=== PATIENT | female | born 1945 | race Caucasian/White ===

== ENCOUNTER 2019-05-07 22:56 | Emergency (ER) | payer MEDICARE ==
[~2019-05-07] VITALS: Ht 152.4 cm; Wt 44.5 kg
[2019-05-07 23:22] VITALS: Ht 152.4 cm; Wt 44.5 kg
[2019-05-07] MEDS ORDERED: UNK BP MED (23:24)
[2019-05-07] MEDS ORDERED: PROTONIX40 MG PO (23:24)
[2019-05-07] MEDS ORDERED: THEOCHRON300 MG PO (23:24)
[2019-05-07 23:54] LABS: HEMATOCRIT 39.8 % (36.0-48.0); HEMOGLOBIN 13.5 g/dL (12-16); LYMPHOCYTES 6.9 % (15-50); MCH 28.2 pg (26.0-34.0); MCHC 33.9 g/dL (31.0-37.0); MCV 83.1 fL (80.0-100.0); MEAN PLATELET VOLUME 8.9 fL (7.4-10.4); NEUTROPHILS 85.5 % (40-80); PLATELET COUNT 249 10x3/uL (130-400); RBC 4.79 10x6/uL (4.00-5.40); RDW 14.5 % (11.5-14.5); WBC 11.6 10x3/uL (4.8-10.8)
[2019-05-08] MEDS ORDERED: MEDROL DOSE PACK4 MG PO (00:14)
[2019-05-08] MEDS ORDERED: COMBIVENT RESPIM4 GM INH (00:14)
[2019-05-08] MEDS ORDERED: AZITHROMYCIN500 MG PO (00:14)
[2019-05-08] MEDS ORDERED: ROBITUSSIN DM 110 ML PO (00:14)
[2019-05-08 00:18] LABS: ALBUMIN 3.2 g/dL (3.4-5.0); ALKALINE PHOSPHATASE 133 U/L (46-116); ALT (SGPT) 15 U/L (10-68); BILIRUBIN - TOTAL 0.18 mg/dL (0.2-1.3); CALC OSMOLALITY 288 mosm/kg (275-300); CALCIUM 8.8 mg/dL (8.5-10.1); CARBON DIOXIDE 24.1 mmol/L (21.0-32.0); CHLORIDE - SERUM 107 mmol/L (98-107); CREATININE - SERUM 0.8 mg/dL (0.6-1.3); GLUCOSE 96 mg/dL (74-106); POTASSIUM - SERUM 4.2 mmol/L (3.5-5.1); PRO BNP 146 pg/mL (0-125); PROTEIN - SERUM 6.8 g/dL (6.4-8.2); SODIUM 143 mmol/L (136-145); TROPONIN-I < 0.017 ng/mL (0.000-0.060); UREA NITROGEN 25 mg/dL (7-18); eGFR NON AFRICAN AMERICAN 74 mL/min (90-120)
[2019-05-08 01:17] VITALS: BP 131/68
== END 2019-05-08 01:18 | disposition home or self-care (01) ==
LOC: D.ER 22:56
PROVIDERS: Family Medicine
DX: J44.1 Chronic obstructive pulmonary disease with (acute) exacerbation (principal)

== ENCOUNTER 2019-05-15 21:42 | Emergency (ER) | payer MEDICARE ==
[~2019-05-15] VITALS: Ht 152.4 cm; Wt 43.6 kg
[~2019-05-15 21:42] MED LIST: AZITHROMYCIN500 MG PO; COMBIVENT RESPIM4 GM INH; MEDROL DOSE PACK4 MG PO; PROTONIX40 MG PO; ROBITUSSIN DM 110 ML PO; THEOCHRON300 MG PO; UNK BP MED
[2019-05-15 22:03] VITALS: Ht 152.4 cm; Wt 43.6 kg
[2019-05-15] MEDS ORDERED: IPRATROPIUM BRO15 M1 NASAL (23:44)
[2019-05-15] MEDS ORDERED: ALBUTEROL2.5 MG/3 M INH (23:44)
[2019-05-15] MEDS ORDERED: AUGMENTIN 875-11 TAB PO (23:44)
[2019-05-15 23:50] LABS: HEMATOCRIT 41.5 % (36.0-48.0); LYMPHOCYTES 16.9 % (15-50); MCHC 33.7 g/dL (31.0-37.0); MEAN PLATELET VOLUME 8.8 fL (7.4-10.4); NEUTROPHILS 75.9 % (40-80); PLATELET COUNT 272 10x3/uL (130-400); RDW 15.1 % (11.5-14.5); WBC 8.3 10x3/uL (4.8-10.8)
[2019-05-15 23:55] LABS: CALCIUM 8.3 mg/dL (8.5-10.1); CREATININE - SERUM 0.9 mg/dL (0.6-1.3)
[2019-05-16 00:09] LABS: ALBUMIN 3.1 g/dL (3.4-5.0); BILIRUBIN - TOTAL 0.24 mg/dL (0.2-1.3); PROTEIN - SERUM 6.4 g/dL (6.4-8.2)
[2019-05-16 00:33] LABS: APPEARANCE CLEAR (CLEAR); BILIRUBIN NEGATIVE (NEGATIVE); COLOR YELLOW (YELLOW); GLUCOSE NEGATIVE (NEGATIVE); KETONE NEGATIVE (NEGATIVE); NITRITE NEGATIVE (NEGATIVE); PROTEIN NEGATIVE (NEGATIVE); UROBILINOGEN NORMAL (NORMAL)
[2019-05-16 00:34] LABS: BACTERIA FEW /hpf (NEGATIVE); EPITHELIAL CELLS 0-5 /hpf (0-5); RED CELLS - URINE 0-5 /hpf (0-5); WHITE CELLS - URINE 0-5 /hpf (NEGATIVE)
[2019-05-16 02:11] VITALS: BP 145/78
== END 2019-05-16 02:11 | disposition home or self-care (01) ==
LOC: D.ER 21:42
PROVIDERS: Family Medicine
DX: J01.90 Acute sinusitis, unspecified (principal); J44.9 Chronic obstructive pulmonary disease, unspecified; Z91.14 Patient's other noncompliance with medication regimen; Z72.0 Tobacco use; I10 Essential (primary) hypertension

== ENCOUNTER 2019-08-27 20:51 | Emergency (ER) | payer OTHER, MEDICAID ==
[~2019-08-27] VITALS: Ht 152.4 cm; Wt 45.5 kg
[~2019-08-27 20:51] MED LIST changes: +ALBUTEROL2.5 MG/3 M INH; +AUGMENTIN 875-11 TAB PO; +IPRATROPIUM BRO15 M1 NASAL
[2019-08-27 21:07] VITALS: Ht 152.4 cm; Wt 45.5 kg
[2019-08-27 21:28] LABS: NITRITE POSITIVE (NEGATIVE)
[2019-08-27 21:29] LABS: BACTERIA MANY /hpf (NEGATIVE); BILIRUBIN NEGATIVE (NEGATIVE); EPITHELIAL CELLS OCC /hpf (0-5); GLUCOSE NEGATIVE (NEGATIVE); KETONE NEGATIVE (NEGATIVE); UROBILINOGEN NORMAL (NORMAL); WHITE CELLS - URINE >50 /hpf (NEGATIVE)
[2019-08-27 21:32] LABS: HEMATOCRIT 38.2 % (36.0-48.0); LYMPHOCYTES 15.7 % (15-50); MCH 28.2 pg (26.0-34.0); MCV 82.9 fL (80.0-100.0); MEAN PLATELET VOLUME 8.9 fL (7.4-10.4); NEUTROPHILS 79.5 % (40-80); PLATELET COUNT 326 10x3/uL (130-400); RBC 4.61 10x6/uL (4.00-5.40); RDW 13.6 % (11.5-14.5); WBC 10.6 10x3/uL (4.8-10.8)
[2019-08-27 21:35] LABS: ANION GAP 13.3 mmol/L (8-16); CALCIUM 9.2 mg/dL (8.5-10.1); CREATININE - SERUM 0.8 mg/dL (0.6-1.3); POTASSIUM - SERUM 3.3 mmol/L (3.5-5.1)
[2019-08-27 21:41] LABS: BILIRUBIN - TOTAL 0.52 mg/dL (0.2-1.3); PROTEIN - SERUM 6.6 g/dL (6.4-8.2)
[2019-08-27] MEDS ORDERED: MACROBID100 MG PO (22:02)
[2019-08-27] MEDS ORDERED: KEFLEX500 MG PO (22:02)
[2019-08-27 22:23] VITALS: BP 147/67
== END 2019-08-27 22:15 | disposition home or self-care (01) ==
LOC: D.ER 20:51
PROVIDERS: Emergency Medicine
DX: R30.0 Dysuria (principal); N39.0 Urinary tract infection, site not specified; J44.9 Chronic obstructive pulmonary disease, unspecified; R39.15 Urgency of urination; Z72.0 Tobacco use

== ENCOUNTER 2019-12-24 23:22 | Emergency (ER) | payer OTHER, MEDICAID ==
[~2019-12-24] VITALS: Ht 152.4 cm; Wt 40.9 kg
[~2019-12-24 23:22] MED LIST changes: +KEFLEX500 MG PO; +MACROBID100 MG PO
[2019-12-24 23:26] VITALS: Ht 152.4 cm; Wt 40.9 kg
[2019-12-24] MEDS ORDERED: B/P MED (23:29)
[2019-12-24] MEDS ORDERED: THEO-24300 MG (23:29)
[2019-12-24] MEDS ORDERED: TRAZODONE HCL150 MG PO (23:30)
[2019-12-24] MEDS ORDERED: AZITHROMYCIN500 MG PO (23:38)
[2019-12-25 00:08] LABS: BASOPHILS 0.2 % (0-2); EOSINOPHILS 1.7 % (0-7); HEMATOCRIT 40.9 % (36.0-48.0); HEMOGLOBIN 13.8 g/dL (12-16); IMMATURE GRANULOCYTES 0.2 % (0-5); LYMPHOCYTES 22.3 % (15-50); MCH 27.5 pg (26.0-34.0); MCHC 33.7 g/dL (31.0-37.0); MCV 81.5 fL (80.0-100.0); MEAN PLATELET VOLUME 8.8 fL (7.4-10.4); MONOCYTES 6.8 % (2-11); NEUTROPHILS 68.8 % (40-80); RBC 5.02 10x6/uL (4.00-5.40); RDW 15.5 % (11.5-14.5); WBC 6.1 10x3/uL (4.8-10.8)
[2019-12-25 00:09] LABS: PLATELET COUNT 215 10x3/uL (130-400)
[2019-12-25 00:18] LABS: CALC OSMOLALITY 284 mosm/kg (275-300); CALCIUM 9.3 mg/dL (8.5-10.1); CARBON DIOXIDE 26.4 mmol/L (21.0-32.0); CHLORIDE - SERUM 104 mmol/L (98-107); CREATININE - SERUM 0.8 mg/dL (0.6-1.3); GLUCOSE 105 mg/dL (74-106); POTASSIUM - SERUM 3.6 mmol/L (3.5-5.1); SODIUM 142 mmol/L (136-145); UREA NITROGEN 19 mg/dL (7-18); eGFR NON AFRICAN AMERICAN 74 mL/min (90-120)
[2019-12-25 00:27] LABS: BILIRUBIN NEGATIVE (NEGATIVE); KETONE NEGATIVE (NEGATIVE); NITRITE NEGATIVE (NEGATIVE); UROBILINOGEN NORMAL (NORMAL)
[2019-12-25] MEDS ORDERED: STERAPRED DS 1210 MG PO (00:27)
[2019-12-25 00:30] LABS: ALBUMIN 3.5 g/dL (3.4-5.0); ALKALINE PHOSPHATASE 181 U/L (30-120); ALT (SGPT) 12 U/L (10-68); BILIRUBIN - TOTAL 0.26 mg/dL (0.2-1.3); C-REACTIVE PROTEIN 1.3 mg/dL (0.0-0.9); PRO BNP 119 pg/mL (0-125)
[2019-12-25 00:36] LABS: BACTERIA FEW /hpf (NONE SEEN); EPITHELIAL CELLS 0-5 /hpf (0-5); RED CELLS - URINE 0-5 /hpf (0-5); WHITE CELLS - URINE 0-5 /hpf (0-5)
[2019-12-25 00:38] LABS: TROPONIN-I < 0.017 ng/mL (0.000-0.060)
[2019-12-25 00:55] VITALS: BP 113/65
== END 2019-12-25 00:55 | disposition home or self-care (01) ==
LOC: D.ER 23:22
PROVIDERS: Family Medicine
DX: J20.9 Acute bronchitis, unspecified (principal); J44.9 Chronic obstructive pulmonary disease, unspecified; R05 Cough; Z72.0 Tobacco use; R51 Headache; R50.9 Fever, unspecified

== ENCOUNTER 2020-01-03 22:42 | Emergency (ER) | payer OTHER, MEDICAID ==
[~2020-01-03] VITALS: Ht 152.4 cm; Wt 40.9 kg
[~2020-01-03 22:42] MED LIST changes: +B/P MED; +STERAPRED DS 1210 MG PO; +THEO-24300 MG; +TRAZODONE HCL150 MG PO
[2020-01-03 22:49] VITALS: BP 164/97; Ht 152.4 cm; Wt 40.9 kg
[2020-01-03] MEDS ORDERED: VOLTAREN25 MG PO (23:25)
[2020-01-03] MEDS ORDERED: LIORESAL 10 MG10 MG PO (23:25)
== END 2020-01-04 01:42 | disposition home or self-care (01) ==
LOC: D.ER 22:42
DX: M54.5 Low back pain (principal); M62.830 Muscle spasm of back; J44.9 Chronic obstructive pulmonary disease, unspecified; Z72.0 Tobacco use

== ENCOUNTER 2020-01-07 12:12 | Inpatient (IN) | payer OTHER ==
[~2020-01-07] VITALS: Ht 152.4 cm; Wt 40.8 kg
[~2020-01-07 12:12] MED LIST changes: +LIORESAL 10 MG10 MG PO; +VOLTAREN25 MG PO
[2020-01-07 13:24] LABS: HEMOGLOBIN 15.2 g/dL (12-16); MCH 28.6 pg (26.0-34.0); MCHC 34.5 g/dL (31.0-37.0); MCV 82.9 fL (80.0-100.0); MEAN PLATELET VOLUME 8.8 fL (7.4-10.4); PLATELET COUNT 262 10x3/uL (130-400); RBC 5.31 10x6/uL (4.00-5.40); RDW 15.5 % (11.5-14.5); WBC 27.8 10x3/uL (4.8-10.8)
[2020-01-07 13:34] LABS: APTT 24.2 SECONDS (22.8-39.4); INR 0.96 (0.85-1.17); PROTIME 12.7 SECONDS (11.6-15.0)
[2020-01-07 13:39] LABS: ANION GAP 14.6 mmol/L (8-16); CALCIUM 9.1 mg/dL (8.5-10.1); CARBON DIOXIDE 26.3 mmol/L (21.0-32.0); CREATININE - SERUM 0.9 mg/dL (0.6-1.3); POTASSIUM - SERUM 4.9 mmol/L (3.5-5.1)
[2020-01-07 13:45] LABS: ALBUMIN 3.3 g/dL (3.4-5.0); BILIRUBIN - TOTAL 0.72 mg/dL (0.2-1.3); PROTEIN - SERUM 6.5 g/dL (6.4-8.2)
[2020-01-07 13:48] LABS: LYMPHOCYTES 5 % (15-50); NEUTROPHILS 94 % (40-80); PLATELET ESTIMATE NORMAL
--- NOTE | 2020-01-07 17:30 | NUR ---
ALERT AND ORIENTED WITH LIMITED ROM TO RUE AND GAURDED 01/26. LEAD PAINTER MORPHINE SET PER ORDERS WITH PAIN MANAGEMENT EFFECTIVE. PURWICK APPLIED DUE TO LIMITED MOBILITY. RADIAL PULSES NOTED. FALL PRECAUTIONS ESTABLISHED. ENCOURAGED THE USE OF CALL LIGHT FOR ASSSIT.
[2020-01-07 17:37] VITALS: BP 157/82; BMI 17.6
--- NOTE | 2020-01-07 19:30 | NUR ---
SITTING UP IN BED. VERY ANXIOUS AND VERBALLY DISRUPTIVE. RESTLESS WITH PAIN. HAS CRIMINAL INTELLIGENCE ANALYST MORPHINE. EXPLAINED USE AND SHE TOOK A DOSE. RATES PAIN IN RUE 10. HAS NONPROD LOOSE COUGH. STATES HER SON AND HIS GIRLFRIEND HAD AND IT ALSO AND STATES, "I HAVE BRONCHITIS." NS @ KVO INFUSING IN LT AC. PUREWICK CATH IN PLACE BUT NO URINE IN CANISTER. O2 @ 2LNC. CONFUSED. ORIENTED TO SELF, PLACE AND SITUATION. DANO ALARM ON . SR ELEVATED X2. CL IN REACH.
--- NOTE | 2020-01-07 21:10 | NUR ---
COVID SWAB SENT TO LAB.
[2020-01-07 21:16] VITALS: BP 145/66
--- NOTE | 2020-01-07 21:43 | NUR ---
SPOKE WITH BLOCK HAND. NO TELEMETRY AVAILABLE AT THIS TIME.
[2020-01-08 01:27] VITALS: BP 172/63
--- NOTE | 2020-01-08 01:27 | NUR ---
RESTING IN BED WITH EYES CLOSED. HAS SLEPT WELL TONIGHT. HAS BEEN NPO SINCE MIDNIGHT. NO ACUTE DISTRESS. CL IN REACH.
--- NOTE | 2020-01-08 03:16 | NUR ---
DIMITRIOS PERFORMED PER DENISSE KING.
[2020-01-08 05:10] LABS: BASOPHILS 0 % (0-2); EOSINOPHILS 0.2 % (0-7); HEMATOCRIT 39.4 % (36.0-48.0); HEMOGLOBIN 13.1 g/dL (12-16); IMMATURE GRANULOCYTES 0.4 % (0-5); LYMPHOCYTES 7.5 % (15-50); MCH 27.6 pg (26.0-34.0); MCHC 33.2 g/dL (31.0-37.0); MCV 82.9 fL (80.0-100.0); MEAN PLATELET VOLUME 8.9 fL (7.4-10.4); NEUTROPHILS 84.9 % (40-80); PLATELET COUNT 239 10x3/uL (130-400); RBC 4.75 10x6/uL (4.00-5.40)
[2020-01-08 05:33] LABS: WBC 14.1 10x3/uL (4.8-10.8)
[2020-01-08 05:44] VITALS: BP 117/63
[2020-01-08 05:44] LABS: ALBUMIN 2.7 g/dL (3.4-5.0); ANION GAP 13.4 mmol/L (8-16); BILIRUBIN - TOTAL 0.61 mg/dL (0.2-1.3); CALCIUM 8.6 mg/dL (8.5-10.1); CREATININE - SERUM 1.1 mg/dL (0.6-1.3); MAGNESIUM - SERUM 2.2 mg/dL (1.8-2.4); POTASSIUM - SERUM 4.4 mmol/L (3.5-5.1); PROTEIN - SERUM 5.8 g/dL (6.4-8.2)
[2020-01-08 07:46] VITALS: BP 121/57
[2020-01-08 12:03] VITALS: BP 120/57
[2020-01-08 14:26] VITALS: Ht 152.4 cm; Wt 40.8 kg
[2020-01-08 16:33] VITALS: BP 118/62
--- NOTE | 2020-01-08 18:45 | NUR ---
PATIENT IN BED WITH IV INTACT. NO COMPLAINTS OR SIGNS OF DISTRESS. VS HAVE BEEN STABLE SINCE CAME BACK FROM SURGERY. PATIENT RESTING WITH NO PROBLEMS. BSCDS ON AND WORKING. CALL LIGHT WITHINR EACH.
--- NOTE | 2020-01-08 19:33 | NUR ---
Resting in bed no s/s of distress. call light and water in reach. IV in place and paten. VAMP STITCHER in place. sling to right sholder. incentive sprometer at bedside. on watting list for telementry. no needs at this time.
[2020-01-08 20:00] VITALS: BP 90/50
[2020-01-09] VITALS: BP 95/41
[2020-01-09 04:00] VITALS: BP 85/43
[2020-01-09 06:29] LABS: BASOPHILS 0 % (0-2); EOSINOPHILS 0.1 % (0-7); HEMOGLOBIN 10.5 g/dL (12-16); IMMATURE GRANULOCYTES 0.3 % (0-5); LYMPHOCYTES 3.6 % (15-50); MCH 27.6 pg (26.0-34.0); MCHC 32.8 g/dL (31.0-37.0); MCV 84.2 fL (80.0-100.0); MEAN PLATELET VOLUME 9.1 fL (7.4-10.4); MONOCYTES 6.4 % (2-11); NEUTROPHILS 89.6 % (40-80); PLATELET COUNT 207 10x3/uL (130-400); RDW 16.1 % (11.5-14.5); WBC 15.7 10x3/uL (4.8-10.8)
[2020-01-09 06:54] LABS: ALBUMIN 2.2 g/dL (3.4-5.0); ANION GAP 9.4 mmol/L (8-16); BILIRUBIN - TOTAL 0.24 mg/dL (0.2-1.3); CALCIUM 7.8 mg/dL (8.5-10.1); CARBON DIOXIDE 29.3 mmol/L (21.0-32.0); CREATININE - SERUM 1.3 mg/dL (0.6-1.3); POTASSIUM - SERUM 4.7 mmol/L (3.5-5.1); PROTEIN - SERUM 4.5 g/dL (6.4-8.2)
[2020-01-09 07:33] LABS: BILIRUBIN NEGATIVE (NEGATIVE); KETONE SMALL mg/dL (NEGATIVE); NITRITE POSITIVE (NEGATIVE); UROBILINOGEN NORMAL mg/dL (< 2)
[2020-01-09 07:34] LABS: WHITE CELLS - URINE 0-5 HPF (0-4)
[2020-01-09 07:35] LABS: AMORPHOUS SEDIMENT <1+ /lpf (NONE SEEN); BACTERIA MODERATE HPF (NONE SEEN); EPITHELIAL CELLS 0-5 /hpf (0-5)
--- NOTE | 2020-01-09 07:50 | NUR ---
PATIENT IN BED WATCHING TV. AWAKE AND ALERT. DENIES ANY NEEDS AT THIS TIME. BED LOW POSITION, CALL LIGHT IN REACH. WILL CONTINUE TO MONITOR.
--- NOTE | 2020-01-09 08:50 | NUR ---
REHAB PRESCREENING Rehab referral received and chart reviewed. This patient has [facility] as her provider which requires prior authorization for rehab benefit. PT evaluation has been ordered, not completed as of yet. OT evaluation will need to be ordered. Rehab will begin preauth process when evaluations are in place. Thank you for this referral! Tiffanie Whitley, FISH INSPECTOR Rehab PD
[2020-01-09 08:56] VITALS: BP 88/48
[2020-01-09 12:20] VITALS: BP 108/56
[2020-01-09 18:08] VITALS: BP 123/55
--- NOTE | 2020-01-09 19:44 | NUR ---
ALERT AND ABLE TO VOICE NEEDS AND WANTS TO STAFF. ON O2 AT 2L VIA N/C IN PLACE LEFT FORARME WITH D5 1/2 AND MORPHINE HOSPITAL ADMINISTRATOR IN PLACE. CALL LIGHT AND WATER IN REACH SCD'S ON NO NEEDS AT THIS TIME.
[2020-01-09 20:00] VITALS: BP 113/50
[2020-01-10] VITALS: BP 132/60
[2020-01-10 04:00] VITALS: BP 167/69
[2020-01-10 06:49] LABS: BASOPHILS 0 % (0-2); EOSINOPHILS 0.4 % (0-7); HEMATOCRIT 33.7 % (36.0-48.0); HEMOGLOBIN 11.1 g/dL (12-16); IMMATURE GRANULOCYTES 0.3 % (0-5); LYMPHOCYTES 5.4 % (15-50); MCH 27.8 pg (26.0-34.0); MCHC 32.9 g/dL (31.0-37.0); MCV 84.5 fL (80.0-100.0); MEAN PLATELET VOLUME 9.4 fL (7.4-10.4); MONOCYTES 5.8 % (2-11); NEUTROPHILS 88.1 % (40-80); PLATELET COUNT 183 10x3/uL (130-400); RBC 3.99 10x6/uL (4.00-5.40); RDW 16.2 % (11.5-14.5); WBC 14.8 10x3/uL (4.8-10.8)
[2020-01-10 07:20] LABS: ANION GAP 10.9 mmol/L (8-16); BILIRUBIN - TOTAL 0.25 mg/dL (0.2-1.3); CALCIUM 8.5 mg/dL (8.5-10.1); CARBON DIOXIDE 27.3 mmol/L (21.0-32.0); MAGNESIUM - SERUM 1.7 mg/dL (1.8-2.4); POTASSIUM - SERUM 4.2 mmol/L (3.5-5.1); PROTEIN - SERUM 5.2 g/dL (6.4-8.2)
[2020-01-10 07:21] LABS: CREATININE - SERUM 0.8 mg/dL (0.6-1.3)
--- NOTE | 2020-01-10 07:44 | NUR ---
PATIENT IN BED ON PHONE. DENIES PAIN OR NEEDS AT THIS TIME. BED LOW POSITION, CALL LIGHT IN REACH. WILL CONTINUE TO MONITOR.
[2020-01-10 09:44] VITALS: BP 145/70
[2020-01-10 12:13] VITALS: BP 146/66
--- NOTE | 2020-01-10 15:43 | OP ---
PATIENT NAME: ANCA PERERA MEDICAL RECORD: [id number] :45 LOCATION:D.[facility] [id number] ADMISSION DATE:01/07/20 SURGEON: ERICH REAGAN MD DATE OF OPERATION: 01/07/2020 PREOPERATIVE DIAGNOSIS: Three-part proximal humeral fracture dislocation of the right shoulder. POSTOPERATIVE DIAGNOSIS: Three-part proximal humeral fracture dislocation of the right shoulder. PROCEDURE: Reverse total shoulder arthroplasty for fracture. SURGEON: Erich Reagan MD ANESTHESIA: DENNIS Lyn INTRAOPERATIVE COMPLICATIONS: None. SUMMARY OF PATHOLOGIC FINDINGS: The patient did indeed have a fracture dislocation with tuberosities split and the humeral head was inferior to the glenohumeral joint. IMPLANTS USED: Tornier to perform reverse total shoulder arthroplasty. Please see the chart for details of the size used. OPERATIVE SUMMARY IN DETAIL: After obtaining appropriate preoperative orthopedic surgery consent as well as anesthetic consultation, evaluation and clearance, the patient was brought to the operating room and placed on the operating table in a supine position. After general laryngeal mask airway was administered, the patient was placed in beach chair position. All pressure points were well padded. She was held firmly to the operating table using vacuum pack suction system. Right upper extremity and shoulder were then prepped and draped in routine sterile fashion. The arm was held in the Trimano arm holding device. At this point, the appropriate timeout was taken and agreed upon by all given the patient's unique identifiers. Deltopectoral incision was taken down past the cephalic vein, which was retracted laterally. Conjoined tendon was gently retracted medially. Fracture hematoma was noted. This was cleared with irrigation. Tuberosities were then controlled with the greater and lesser being split. The patient's biceps tendon was ruptured. Rotator cuff was also gently incised to reveal the fractured humeral head, which was removed and saved for bone grafting. At this point, all fragments were removed. The patient's calcar was broken off. It was found to be a single small piece that was removed as well. Attention was then turned to the glenoid. Bicipital and labral labrectomy was performed circumferentially. Center pin was placed followed by reaming for the metaglene. The metaglene with post was then tamped into place and then screwed in with 2 compression screws and 2 locking screws. A standard 36 mm glenosphere head was put into place with the tamp screw tamp screw method, which seated nicely onto the patient's glenoid surface. Attention was then turned to the proximal humerus. Serial and sequential trials were undertaken and it was felt that the size 7 humeral stem was the most appropriate and trials were undertaken. After the most appropriate combination of trials and polyethylene trial was determined, this was all taken out. Final component was cemented into place that being a 7 x 130 fracture stem OPERATIVE REPORT [id number] ANCA PERERA and I used a retention insert +6. This reduced nicely. At this point, bone graft portion of which had already been placed into the stem in keeping with the fracture stem from Daniella and the rest of the bone graft was packed around this. Tuberosities were then sutured around the entire system including the lesser and greater together as well as these being sutured through two premade drill holes in the lateral part of the humerus. This resulted in excellent placement of the tuberosities behind the implant. At this point, the wound was filled with a gram of vancomycin and gram of tobramycin after it had been copiously lavaged. It was then closed with #1 Vicryl, 2-0 Vicryl by YOSI Jorge, and DENNIS Lyn. Sterile dressings were applied. A sling was applied. The patient was awakened and taken to recovery room in stable condition. All final needle and sponge counts were correct. TRANSINT:[id number] Voice Confirmation ID: [id number] DOCUMENT ID: [id number] TEZ LOVE, ERICH WATERS at 1543 CC: [id number] DICTATION DATE: 01/09/20 1540 POT ANNEALER: 01/09/20 2322 [facility] [address] [id number]
--- NOTE | 2020-01-10 15:52 | MORECARE ---
CASE MANAGEMENT DISCHARGE SUMMARY PATIENT: ANCA PERERA UNIT: [id number] ADM DATE: 01/07/20 AGE: 74 : 45 SEX: F ROOM/BED: D.2228 AUTHOR: MICKI LEVINE PHYSICIAN: REFERRING PHYSICIAN: ALEX DING MD DATE OF SERVICE: 01/10/20 Discharge Plan Patient Name: ANCA PERERA [facility] [facility] 1945 Planned Disposition: Detention Facility Anticipated Discharge Date: Discharge Date: Expected LOS: Initial Reviewer: [email or web address] Initial Review Date: 01/07/2020 Generated: 01/10/20 4:52 pm DCPIA - Discharge Planning Initial Assessment Updated by [id number]: Radha Crawford on 01/10/20 3:49 pm * Is the patient Alert and Oriented? Yes * PCP [facility] * Pharmacy [facility] * Preadmission Environment Home with Family * Equipment Walker * Community resources currently utilized None * Additional services required to return to the preadmission environment? Yes * Has this patient been hospitalized within the prior 30 days at any hospital? No Patient Name: ANCA PERERA Page [id number] at 1552 All edits/amendments must be made on the electronic document DICTATION DATE: 01/10/20 1552 THERMAL MOLDER: RONALDO 01/10/20 1552 RPT#: [id number] DC DATE: STATUS: ADM IN [facility] [address] [place] [address] END OF REPORT
--- NOTE | 2020-01-10 16:00 | MORECARE ---
CASE MANAGEMENT DISCHARGE SUMMARY PATIENT: ANCA PERERA UNIT: [id number] ADM DATE: 01/07/20 AGE: 74 : 45 SEX: F ROOM/BED: D.2228 AUTHOR: JULIANNADOC PHYSICIAN: REFERRING PHYSICIAN: ALEX DING MD DATE OF SERVICE: 01/10/20 Discharge Plan Patient Name: ANCA PERERA Facility: [facility]:[place] : 1945 Planned Disposition: Shelter Facility Anticipated Discharge Date: Discharge Date: Expected LOS: Initial Reviewer: [email or web address] Initial Review Date: 01/07/2020 Generated: 01/10/20 5:00 pm Comments DCP- Discharge Planning Updated by [email or web address]: Radhaaudrey Crawford on 01/10/20 2:[address] Patient Name: ANCA PERERA Admission Status: ER Accout number: [id number] Admission Date: 01-07-2020 : 1945 Admission Diagnosis:PATHOLOGICAL FRACTURE, UNSP SITE, INIT ENCNTR FOR FRACT Attending: ALEX DING Current LOS: 3 Anticipated DC Date: Planned Disposition: Shelter Facility Primary Insurance: [employer] Discharge Planning Comments: CM met with patient at bedside after explaining CM role and obtaining verbal consent. CM discussed availability / needs of home health, REHAB and medical equipment. STATES SHE HAS A WALKER AT HOME. I SPOKE WITH HER DAUGHTER ANAHI ON THE PHONE YESTERDAY AND SHE WAS PLANNING TO COME BY TODAY FOR ME TO GIVE HER BROCHURES FROM DIFFERENT REHABS. I LEFT SEVERAL BROSHURES WITH THE PATIENT, SHE STATES SHE WILL LOOK THEM OVER AND MAKE A DECISION. I WILL REVISIT HER TOMORROW. [employer] Certified Network Associate: Radha Crawford DCPIA - Discharge Planning Initial Assessment Updated by [id number]: Radha Crawford on 01/10/20 3:49 pm * Is the patient Alert and Oriented? Yes * PCP [facility] * Pharmacy [facility] * Preadmission Environment Home with Family * Equipment Walker * Community resources currently utilized None * Additional services required to return to the preadmission environment? Yes * Has this patient been hospitalized within the prior 30 days at any hospital? No Last DP export: 01/10/20 2:52 p Patient Name: ANCA PERERA Page 92111 at 1600 All edits/amendments must be made on the electronic document DICTATION DATE: 01/10/201599 COUNTY SUPERVISOR: RONALDO 01/10/201599 RPT#: [id number] DC DATE: STATUS: ADM IN [facility] [address] [place] [address] END OF REPORT
[2020-01-10 16:17] VITALS: BP 179/83
[2020-01-10 20:00] VITALS: BP 170/83
[2020-01-11] VITALS: BP 157/87
--- NOTE | 2020-01-11 01:27 | NUR ---
PATIENT IS ALERT WIH SOME CONFUSION NOTED AT TIMES. IV TO LEFT FOREARM WITH D5 1/2 NS PER ORDERS, MORPHINE SENIOR CHEMICAL ENGINEER IN PLACE FOR PAIN CONTROLE. RIGHT SHOULDER WITH DRESSING CLEAN DRY AND INTACT. SLING IN PLACE. WATER AND CALL LIGHT IN REACH. NO NEEDS AT THIS TIME.
[2020-01-11 04:00] VITALS: BP 176/81
[2020-01-11 06:24] LABS: BASOPHILS 0 % (0-2); EOSINOPHILS 0.1 % (0-7); HEMATOCRIT 37.6 % (36.0-48.0); HEMOGLOBIN 12.8 g/dL (12-16); IMMATURE GRANULOCYTES 0.3 % (0-5); LYMPHOCYTES 2.7 % (15-50); MCH 27.6 pg (26.0-34.0); MEAN PLATELET VOLUME 9.4 fL (7.4-10.4); MONOCYTES 4.4 % (2-11); NEUTROPHILS 92.5 % (40-80); RBC 4.64 10x6/uL (4.00-5.40); RDW 15.6 % (11.5-14.5); WBC 18.1 10x3/uL (4.8-10.8)
[2020-01-11 06:42] LABS: ALBUMIN 1.8 g/dL (3.4-5.0); ANION GAP 8.9 mmol/L (8-16); BILIRUBIN - TOTAL 0.37 mg/dL (0.2-1.3); CALCIUM 8.7 mg/dL (8.5-10.1); CREATININE - SERUM 0.8 mg/dL (0.6-1.3); MAGNESIUM - SERUM 1.9 mg/dL (1.8-2.4); POTASSIUM - SERUM 3.9 mmol/L (3.5-5.1); PROTEIN - SERUM 5.5 g/dL (6.4-8.2)
[2020-01-11 06:54] LABS: PLATELET COUNT 232 10x3/uL (130-400)
[2020-01-11 08:33] VITALS: BP 170/85
--- NOTE | 2020-01-11 08:50 | NUR ---
ASSESSMENT PER FLOW SHEET. RIGHT ARM IN SLING.COMPLAINS OF NAUSEA THIS AM,MEDS PER MAR ORDERED.FALL PREVENTION IN PLACE WITH BED ALARM.
--- NOTE | 2020-01-11 09:00 | NUR ---
OT NOTE: (DOS 01/10/20) PT COMPLETED UB HYGIENE TASKS WITH LUE WITH SETUP. [phone] THANK YOU,KOKO CARLSON
--- NOTE | 2020-01-11 10:59 | NUR ---
UP TO CHAIR WITH PT
--- NOTE | 2020-01-11 12:17 | NUR ---
OT NOTE: PT DOING BETTER TODAY. REPORTED THAT SHE HAD BEEN VOMITTING EARLIER THIS AM. ASSISTED PT TO EOB WITH MIN ASSIST; R UE REMAINS IMMOBILIZED. SITTING BALANCE GOOD. ABLE TO PERFORM SIMPLE GROOMING TASKS WITH MIN ASSIST. ABLE TO TAKE SEVERAL STEPS TO CHAIR.. BECAME NAUSEATED AGAIN AND WAS PROVIDED WITH EMMASIS BAG. TRANSFERRED TO CHAIR WITH MIN ASSIST AND POSITIONED FOR COMFORT. ASHLEY EISENBERG, OTR/L [phone]
[2020-01-11 12:33] VITALS: BP 167/82
--- NOTE | 2020-01-11 15:08 | NUR ---
HAD LARGE STOOL ON BSC. PATIENT HAS BEEN UP TO CHAIR A SAT FOR A FEW HOURS. SHE IS BACK TO BED AND REMAINS WITHOUT DISTRESS.
--- NOTE | 2020-01-11 15:35 | NUR ---
OT NOTE: PT REQUIRED SET UP WITH UB HYGIENE TASKS AND GROOMING. PT REQUIRED MIN A WITH BED MOB TASKS. PT IS STILL NAUSEATED. [phone] THANK YOU,KOKO CARLSON
--- NOTE | 2020-01-11 16:17 | NUR ---
ANOTHER SMALL BM. COMPLAINS OF NAUSEA. MEDS ORDERED PER MAR
[2020-01-11 17:26] VITALS: BP 146/85
--- NOTE | 2020-01-11 17:58 | NUR ---
SPOKE WITH ALLIE FELIZ APRN, PT IS REFUSING Q4 RT TXS DUE TO FEELING NO NEED AT THIS TIME. AGREED TO CHANGE TO PRN. PT WILL CALL IF TX NEEDED.
[2020-01-11 20:00] VITALS: BP 176/82
--- NOTE | 2020-01-11 20:00 | NUR ---
PT SITTING UP IN BED WITHOUT DISTRESS, RIGHT ARM IN SLING. DENIES PAIN. STATES SHE IS NAUSEOUS. GAVE ZOFRAN ORDERED. DAUGHTER IN LAW CALLED, UPDATE GIVEN. PT DENIES OTHER NEEDS AT THIS TIME. CL IN REACH, WILL CTM
[2020-01-12] VITALS: BP 164/79
--- NOTE | 2020-01-12 02:31 | NUR ---
PT VOMITED 200ML. GAVE ZOFRAN ORDERED. PLACED PT ON AND OFF BEDPAN. PT HAS QUARTER SIZE BLANCHABLE RED SPOT ON BUTTOCKS, PLACED CREAM OVER SPOT. PROVIDED PT COLD RAG TO PLACE ON FACE REQUESTED. REPOSITIONED IN BED. DENIES OTHER NEEDS. WILL CTM
[2020-01-12 04:00] VITALS: BP 162/84
[2020-01-12 07:39] LABS: BASOPHILS 0.1 % (0-2); EOSINOPHILS 0.2 % (0-7); HEMATOCRIT 35.7 % (36.0-48.0); IMMATURE GRANULOCYTES 0.2 % (0-5); LYMPHOCYTES 3.9 % (15-50); MCH 27.4 pg (26.0-34.0); MCHC 33.6 g/dL (31.0-37.0); MCV 81.5 fL (80.0-100.0); MEAN PLATELET VOLUME 9.5 fL (7.4-10.4); MONOCYTES 4.6 % (2-11); PLATELET COUNT 248 10x3/uL (130-400); RBC 4.38 10x6/uL (4.00-5.40); RDW 15.3 % (11.5-14.5); WBC 15.2 10x3/uL (4.8-10.8)
--- NOTE | 2020-01-12 08:00 | NUR ---
STILL HAVING ALOT OF NAUSEA. UNABLE TO TAKE AM MEDS AND REFUSES ALL TRAYS AND DRINKS.
[2020-01-12 08:03] LABS: ANION GAP 7.1 mmol/L (8-16); BILIRUBIN - TOTAL 0.42 mg/dL (0.2-1.3); CALCIUM 8.6 mg/dL (8.5-10.1); CREATININE - SERUM 0.8 mg/dL (0.6-1.3); POTASSIUM - SERUM 3.1 mmol/L (3.5-5.1); PROTEIN - SERUM 5.1 g/dL (6.4-8.2)
[2020-01-12 08:34] VITALS: BP 180/90
--- NOTE | 2020-01-12 11:35 | NUR ---
OT NOTE: PT REMAINS VERY NAUSEATED. STATES THAT SHE IS UNABLE TO KEEP ANY FOOD DOWN BECAUSE SHE TROWS IT BACK UP. PT INCONT OF URINE; ASSISTED TO EOB WITH MOD ASSIST. SIT TO STAND WITH MIN ASSIST AND ABLE TO TAKE A FEW SIDE STEPS. PT WAS ABLE TO STAY STANDING LONG ENOUGH FOR LINENS TO BE CHANGED. MAX ASSIST FOR TOILET HYGIENE. ABLE TO WASH FACE WITH CLOTH AND USE OF L HAND. THERAPIST REMOVED SLING TO CLEAN UNDER R UE AND RE APPLIED FOR BETTER POSITIONING. APPLIED CLEAN GOWN..PT ABLE TO GET BACK IN BED WITH MIN ASSIST. PTS NAUSEA SEEMS TO BE HER BIGEST PROBLEM AT THIS TIME. SHE WAS ABLE TO SIT UP IN CHAIR FOR SHORT TIME YESTERDAY, BUT STATED THAT SHE JUST FELT TOO SICK TO STAY UP IN CHAIR TODAY. ASHLEY EISENBERG, OTR/L [phone]
[2020-01-12 12:55] VITALS: BP 198/86
[2020-01-12 17:22] VITALS: BP 178/72
--- NOTE | 2020-01-12 19:00 | NUR ---
BEDSIDE REPORT RECEIVED AND CARE OF PT ASSUMED. PT LYING IN SUPINE POSITION WITH EYES CLOSED. IV TO LEFT FA PATENT WITH D51/2 NS INFUSING AT 75 ML/HR. RIGHT ARM IN SLING. CHANGED OUT EMESIS BAG...APPROX 240 ML OF DARK LIQUID IN BAG.
--- NOTE | 2020-01-12 20:10 | NUR ---
TALKED TO DAUGHTER IN LAW ON THE PHONE...SHE STATED THAT PT TOLD HER PT DID NOT WORK WITH HER TODAY. EXPLAINED TO DAUGHTER THAT PT REFUSED TO AMBULATE WITH PT TODAY OR TO SIT UP IN CHAIR.
--- NOTE | 2020-01-12 20:10 | NUR ---
HS MEDICATIONS GIVEN TO INCLUDE BENADRYL 25 MG IVP TO HELP WITH NAUSEA.
[2020-01-12] MEDS ORDERED: DILTIAZEM 24HR180 M4 PO (20:49)
[2020-01-12 21:08] VITALS: BP 203/52
--- NOTE | 2020-01-12 21:44 | NUR ---
BLOOD PRESSURE ELEVATED...SBP 202 LAST CHECK. RECEIVED ORDER FROM SOCIAL SECURITY ASSESSOR FOR APPRESOLINE 10 MG FOR SBP > 170. GAVE FIRST DOSE NOW. WILL MONITOR FOR EFFECTIVENESS.
[2020-01-13 00:28] VITALS: BP 173/55
--- NOTE | 2020-01-13 05:26 | NUR ---
PT C/O NAUSEA OFF AND ON ALL NIGHT. EMESIS AMOUNT FOR SHIFT 200 ML, DARK GREEN IN COLOR. PT INCONTINENT OF URINE AND HAD LARGE INCONTINENT STOOL...250 MLS. ENCOURAGED PT TO AMBULATE WITH PT THIS AM TO AID IN GETTING BOWELS BACK TO NORMAL.
[2020-01-13 05:44] LABS: BASOPHILS 0 % (0-2); EOSINOPHILS 0.1 % (0-7); HEMATOCRIT 34.5 % (36.0-48.0); HEMOGLOBIN 11.9 g/dL (12-16); IMMATURE GRANULOCYTES 0.1 % (0-5); LYMPHOCYTES 4.9 % (15-50); MCH 27.8 pg (26.0-34.0); MCHC 34.5 g/dL (31.0-37.0); MCV 80.6 fL (80.0-100.0); MEAN PLATELET VOLUME 9.4 fL (7.4-10.4); MONOCYTES 5.1 % (2-11); NEUTROPHILS 89.8 % (40-80); PLATELET COUNT 265 10x3/uL (130-400); RBC 4.28 10x6/uL (4.00-5.40); RDW 15.3 % (11.5-14.5); WBC 13.5 10x3/uL (4.8-10.8)
[2020-01-13 05:57] VITALS: BP 177/78
[2020-01-13 06:18] LABS: ALKALINE PHOSPHATASE 111 U/L (30-120); BILIRUBIN - TOTAL 0.45 mg/dL (0.2-1.3); CALC OSMOLALITY 266 mosm/kg (275-300); CALCIUM 8.5 mg/dL (8.5-10.1); CARBON DIOXIDE 33.4 mmol/L (21.0-32.0); CHLORIDE - SERUM 94 mmol/L (98-107); CREATININE - SERUM 0.7 mg/dL (0.6-1.3); GLUCOSE 123 mg/dL (74-106); PROTEIN - SERUM 5.5 g/dL (6.4-8.2); SODIUM 131 mmol/L (136-145); UREA NITROGEN 21 mg/dL (7-18); eGFR NON AFRICAN AMERICAN 87 mL/min (90-120)
[2020-01-13 06:19] LABS: ALT (SGPT) 8 U/L (10-68); POTASSIUM - SERUM 2.7 mmol/L (3.5-5.1)
--- NOTE | 2020-01-13 08:16 | NUR ---
0700 BEDSIDE REPORT RECEIVED PT ASLEEP AWAKENS TO VOICE ASSESSMENT COMPLETE ZOFRAN GTT INFUSING K+ RIDER #2 INFUSING
[2020-01-13 09:27] VITALS: BP 190/70
[2020-01-13 12:00] VITALS: BP 180/74
--- NOTE | 2020-01-13 16:45 | NUR ---
1300 PLACED NGT 16 fr TO RIGHT NARE WITHOUT COMPLICATIONS. THIN BILE GREEN DRAINAGE NOTED ON LOW INTERMITTANT SUCTION. APRESLINE 10MG GIVEN IV FOR HTN
--- NOTE | 2020-01-13 17:30 | NUR ---
1700 UP TO RECLINER CHAIR WITH ASSIST X 1 USED PILLOW SUPPORT FOR COMFORT
--- NOTE | 2020-01-13 17:33 | NUR ---
1715 ASSIST UP TO BEDSIDE COMMODE VOIDED CONCENTRATED URINE AND SMALL SOFT STOOL NOTED RETURNED TO RECLINER CHAIR CALL LIGHT IN REACH ELEVATED LEGS
[2020-01-13 18:06] VITALS: BP 142/76
--- NOTE | 2020-01-13 19:15 | NUR ---
PATIENT ALERT AND ORIENTED WHEN ENTERING THE ROOM. NGT TO THE RIGHT LIRIANO, 16 MALAWIAN IN SIZE, CONNECTED TO LOW, INTERMITTENT SUCTION, PULLING DARK GREEN GASTRIC CONTENTS. ASSESSMENT PERFORMED. RIGHT ARM IN SLING PER ORDER. IC TO THE LEFT FOREARM, INFUSING IVF PER ORDER. CALL LIGHT CLOSE. BED ALARM ON. CPOC.
[2020-01-13 21:18] VITALS: BP 140/62
--- NOTE | 2020-01-13 21:20 | NUR ---
IV TO THE LEFT FOREARM NO LONGER FLUSHING. REMOVED AND RESITED TO THE UPPER LEFT FOREARM. 22 G, X 1 ATTEMPT. CPOC.
[2020-01-14 01:23] VITALS: BP 121/52
[2020-01-14 05:08] VITALS: BP 192/74
[2020-01-14 07:02] LABS: BASOPHILS 0 % (0-2); EOSINOPHILS 0.8 % (0-7); HEMATOCRIT 31.8 % (36.0-48.0); HEMOGLOBIN 10.5 g/dL (12-16); IMMATURE GRANULOCYTES 0.3 % (0-5); LYMPHOCYTES 9.6 % (15-50); MCH 26.9 pg (26.0-34.0); MCV 81.5 fL (80.0-100.0); MEAN PLATELET VOLUME 9.1 fL (7.4-10.4); MONOCYTES 5.1 % (2-11); NEUTROPHILS 84.2 % (40-80); PLATELET COUNT 239 10x3/uL (130-400); RDW 15.4 % (11.5-14.5)
[2020-01-14 07:03] LABS: WBC 9.1 10x3/uL (4.8-10.8)
[2020-01-14 07:21] LABS: ALBUMIN 1.8 g/dL (3.4-5.0); BILIRUBIN - TOTAL 0.5 mg/dL (0.2-1.3); CALCIUM 8.6 mg/dL (8.5-10.1); CARBON DIOXIDE 33.1 mmol/L (21.0-32.0); MAGNESIUM - SERUM 2.1 mg/dL (1.8-2.4); POTASSIUM - SERUM 3.1 mmol/L (3.5-5.1); PROTEIN - SERUM 5.1 g/dL (6.4-8.2)
[2020-01-14 07:33] LABS: CREATININE - SERUM 0.9 mg/dL (0.6-1.3)
[2020-01-14 08:22] VITALS: BP 128/63
[2020-01-14 12:07] VITALS: BP 122/63
[2020-01-14 17:48] VITALS: BP 127/66
--- NOTE | 2020-01-14 19:00 | NUR ---
PATIENT ALERT AND ORIENTED X 4. PATIENT DENIES PAIN UPON ASSESSMENT. NGT TO RIGHT LIRIANO, CLAMPED PER ORDER. IVF INFUSING PER EMAR. ASSESSMENT PERFORMED. DENIES FURTHER NEEDS AT THIS TIME. CALL LIGHT CLOSE. CPOC.
--- NOTE | 2020-01-14 20:30 | NUR ---
ASSISTED TO BEDSIDE COMMODE WITH ONE PERSON ASSIST. TOLERATED AMBULATION WELL. SAT UP IN CHAIR FOR SEVERAL MINUTES AFTER PER 2100 ORDER. RETURNED TO BED SAFELY. CALL LIGHT CLOSE. CPOC.
[2020-01-14 21:48] VITALS: BP 167/80
--- NOTE | 2020-01-14 23:20 | NUR ---
RESTING WITH NO SIGNS OR SYMPTOMS OF DISTRESS AT THIS TIME. CALL LIGHT CLOSE TO PATIENT. DANO ALARM REMAINS ON. CPOC.
--- NOTE | 2020-01-15 01:30 | NUR ---
PATIENT COMPLAINING OF "FEELING SO FULL ITS HARD TO BREATHE IN. I'M FEELING SO SICK TO MY STOMACH." SLIGHT DISTENSION NOTED IN ABDOMEN. SPOKE WITH CHARGE NURSE, BOTH AGREED TO UNCLAMP NGT. IMMEDIATELY RECEIVED 1000 CC DARK GREEN GASTRIC CONTENTS.
[2020-01-15 01:34] VITALS: BP 181/85
--- NOTE | 2020-01-15 04:30 | NUR ---
AFTER REPLACING CANISTER, PATIENT ONLY PUT OUT ADDITIONAL 200 FROM NGT LOW INTERMITTENT SUCTION. RECLAMPED NGT AT THIS TIME. PATIENT PASSING GAS. ENCOURAGED PATIENT TO AMBULATE MORE AND TO TRY TO SIT IN CHAIR AND BE MORE ACTIVE WITHIN LIMITS. EDUCATED PATIENT ON ACTIVITY AIDING IN DIGESTION. PATIENT RECEPTIVE TO TEACHING. FALL ALARMS REMAIN IN PLACE. CALL LIGHT CLOSE. CPOC.
--- NOTE | 2020-01-15 04:58 | NUR ---
TUBING REPLACED PER POLICY PROTOCAL. CPOC.
[2020-01-15 05:13] VITALS: BP 161/71
[2020-01-15 05:42] LABS: BASOPHILS 0 % (0-2); EOSINOPHILS 0.7 % (0-7); HEMATOCRIT 30.9 % (36.0-48.0); HEMOGLOBIN 10.2 g/dL (12-16); IMMATURE GRANULOCYTES 0.3 % (0-5); LYMPHOCYTES 10.4 % (15-50); MCH 27.4 pg (26.0-34.0); MCV 83.1 fL (80.0-100.0); MEAN PLATELET VOLUME 9.1 fL (7.4-10.4); MONOCYTES 3.2 % (2-11); NEUTROPHILS 85.4 % (40-80); PLATELET COUNT 231 10x3/uL (130-400); RBC 3.72 10x6/uL (4.00-5.40); RDW 15.6 % (11.5-14.5); WBC 10.2 10x3/uL (4.8-10.8)
[2020-01-15 06:27] LABS: ALBUMIN 1.9 g/dL (3.4-5.0); ANION GAP 11.1 mmol/L (8-16); BILIRUBIN - TOTAL 0.47 mg/dL (0.2-1.3); CALCIUM 8.3 mg/dL (8.5-10.1); CARBON DIOXIDE 31.4 mmol/L (21.0-32.0); CREATININE - SERUM 0.8 mg/dL (0.6-1.3); MAGNESIUM - SERUM 2.2 mg/dL (1.8-2.4); POTASSIUM - SERUM 3.5 mmol/L (3.5-5.1); PROTEIN - SERUM 4.7 g/dL (6.4-8.2)
--- NOTE | 2020-01-15 07:15 | NUR ---
RECEIVED BEDSIDE REPORT. PT SITTING UP IN BED, A & O X4. PIV IN LEFT FOREARM, PATENT AND INFUSING, NO REDNESS OR SWELLING. NGT RIGHT NARE, 16 FR, CLAMMPED. RUE IN SLING, WEAKNESS AND IMPAIRED ROM. PT ABLE TO AMBULATE WITH ONE PERSON ASSIST TO BSC. SCDS ON BED, PT TAKES THEM ON AND OFF. ISP AT BEDSIDE, PT VERBALIZES USE. EDUCATED PT ON CL AND NEEDS, VERBALIZED UNDERSTANDING. BED LOW, RAILS X2. CL IN REACH, WILL CONTINUE TO MONITOR.
[2020-01-15 07:59] VITALS: BP 134/67
--- NOTE | 2020-01-15 09:45 | NUR ---
ASSISTED PT TO BSC, PT URINATED. ASSISSTED BACK TO BED, PT TOLERATED WELL. BED LOW, CL IN REACH.
--- NOTE | 2020-01-15 11:15 | NUR ---
ASSISTED PT CHAIR, TURNED CHAIR ALARM ON. EDUCATED PT ABOUT SITTING IN CHAIR THROUGHOUT MEALS, AND WORKING WITH PT TODAY, INCREASING MOVEMENT, PT VERBALIZED UNDERSTANDING. CHAIR ALARM ON, CL IN REACH.
[2020-01-15 11:49] VITALS: BP 140/88
--- NOTE | 2020-01-15 14:02 | NUR ---
OT NOTE: PT CONT TO C/O NAUSEA AND STATES THAT SHE CAN HARDLY SWALLOW BECAUSE HER SALIVA IS SO THICK. ASSISTED PT WITH MIN ASSIST TO EOB; AMB AROUND ROOM WITH COMPUTER TECHNOLOGY INSTRUCTOR; PT STOOD AT SINK AND PERFORMED ORAL CARE WITH CGA. PT DID SPIT OUT COPIOUS AMOUNTS OF THICK COLORLESS PHLEGM. BACK TO BED WITH MIN ASSIST. REPOSITIONED FOR COMFORT. ASHLEY EISENBERG, OTR/L
--- NOTE | 2020-01-15 15:00 | NUR ---
OT NOTE; PT COMPLETED SUPINE TO SIT WITH MIN A. PT COMPLETED EOB SITTING WITH CGA. PT COMPLETED SIT TO STAND WITH MIN A. PT REQUIRED MOD A FOR LAUREL SOCKS. [phone] THANK YOU,KOKO CARLSON
--- NOTE | 2020-01-15 15:45 | NUR ---
ASSISTED PT BACK TO BED FROM CHAIR, PT TOLERATED WELL. ATTACHED NGT TO WALL SUCTION, OUTPUT 1400ML GREEN FLUID. ABD STILL APPEARS DISTENDED. WILL CONTINUE TO MONITOR.
--- NOTE | 2020-01-15 15:56 | MORECARE ---
CASE MANAGEMENT DISCHARGE SUMMARY PATIENT: ANCA PERERA UNIT: [id number] ADM DATE: 01/07/20 AGE: 74 : 45 SEX: F ROOM/BED: D.2228 AUTHOR: JULIANNADOC PHYSICIAN: REFERRING PHYSICIAN: ALEX DING MD DATE OF SERVICE: 01/15/20 Discharge Plan Patient Name: ANCA PERERA Facility: [facility]:[place] : 1945 Planned Disposition: Group Home Facility Anticipated Discharge Date: Discharge Date: Expected LOS: Initial Reviewer: [email or web address] Initial Review Date: 01/07/2020 Generated: 01/15/20 4:55 pm Comments DCP- Discharge Planning Updated by [id number]: Radha Yvette on 01/15/20 2:[address] Patient Name: ANCA PERERA Admission Status: ER Accout number: [id number] Admission Date: 01-07-2020 : 1945 Admission Diagnosis:PATHOLOGICAL FRACTURE, UNSP SITE, INIT ENCNTR FOR FRACT Attending: ALEX DING Current LOS: 8 Anticipated DC Date: Planned Disposition: Group Home Facility Primary Insurance: [employer]YSMCR Discharge Planning Comments: CM SPOKE WITH PATIENT TODAY AND SHE WOULD LIKE REHAB AT [facility]. ALFREDO SIGNED AND I WILL FAX INITIAL CLINICALS TO THEM. CM TO FOLLOW AND ASSIST NEEDED WITH DC PLANNING/NEEDS. Computer Support Technician: Radha Crawford DCP- Discharge Planning Updated by [id number]: Radha Yvette on 01/10/20 2:[address] Patient Name: ANCA PERERA Admission Status: ER Accout number: [id number] Admission Date: 01-07-2020 : 1945 Admission Diagnosis:PATHOLOGICAL FRACTURE, UNSP SITE, INIT ENCNTR FOR FRACT Attending: ALEX DING Current LOS: 3 Anticipated DC Date: Planned Disposition: Group Home Facility Primary Insurance: NOV[employer]YSMCR Discharge Planning Comments: CM met with patient at bedside after explaining CM role and obtaining verbal consent. CM discussed availability / needs of home health, REHAB and medical equipment. STATES SHE HAS A WALKER AT HOME. I SPOKE WITH HER DAUGHTER ANAHI ON THE PHONE YESTERDAY AND SHE WAS PLANNING TO COME BY TODAY FOR ME TO GIVE HER BROCHURES FROM DIFFERENT REHABS. I LEFT SEVERAL BROSHURES WITH THE PATIENT, SHE STATES SHE WILL LOOK THEM OVER AND MAKE A DECISION. I WILL REVISIT HER TOMORROW. Computer Support Technician: Radha Yvette DCPIA - Discharge Planning Initial Assessment Updated by [id number]: Radha Yvette on 01/10/20 3:49 pm * Is the patient Alert and Oriented? Yes * PCP [facility] * Pharmacy [facility] * Preadmission Environment Home with Family * Equipment Walker * Community resources currently utilized None * Additional services required to return to the preadmission environment? Yes * Has this patient been hospitalized within the prior 30 days at any hospital? No External Providers [facility] [place] Next Contact Date: Service Request Date: Service Type: Resolution: Reviewer: Comments: Coverage Notice Reviewer: [id number] Khloe Crawford Notice Issued Date-Time: 01/15/2020 15:50 Notice Type: Patient Choice Letter Notice Delivered To: Patient Relationship to Patient: Eyelet Riveter Name: Delivery Method: HAND - Hand Delivered Laura Days: Prior Verbal Notification: Recipient Understood Notice: Yes Recipient Signature: Yes Med Rec Note Co-signed by Attending: Coverage Notice Comment: [facility] Last DP export: 01/10/20 3:00 p Patient Name: ANCA PERERA Page 62590 at 1556 All edits/amendments must be made on the electronic document DICTATION DATE: 01/15/20 155 SUPERVISOR GATE SERVICES: RONALDO 01/15/20 1556 RPT#: [id number] MO DATE: STATUS: ADM IN [facility] [address] [place] [address] END OF REPORT
[2020-01-15 16:49] VITALS: BP 148/60
--- NOTE | 2020-01-15 18:15 | NUR ---
PT DAUGHTER AT BEDSIDE, INQUIRES ABOUT CONSULT WITH SURGEON. EDUCATED PT THAT DR GALLARDO WOULD BE MAKING ROUNDS THIS EVENING AND IF SHE DOES NOT SEE HIM I WOULD GIVE HIM HER NUMBER TO UPDATE HER ON PT.
[2020-01-15 20:00] VITALS: BP 147/70
--- NOTE | 2020-01-15 20:00 | NUR ---
PATIENT IN BED RESTING WITH NO NEEDS NO S/S OF DISTRESS. ON ROOM AIR IV TO LEFT FOREARM WITH NS AT 75. NG TUB IN PLACE TO RIGHT NAIRE DRESSING AND SLING IN PLACE TP RIGHT ARM. BEDSIDE COMODE AT BEDSIDE. CALL LIGHT AND WATER IN REACH AT BEDSIDE. CHECKED OFTEN FOR NEEDS AND SAFETY.
[2020-01-16 04:00] VITALS: BP 150/75
[2020-01-16 07:00] LABS: BASOPHILS 0.1 % (0-2); EOSINOPHILS 0.8 % (0-7); HEMATOCRIT 29.8 % (36.0-48.0); HEMOGLOBIN 9.8 g/dL (12-16); IMMATURE GRANULOCYTES 0.3 % (0-5); LYMPHOCYTES 10.9 % (15-50); MCH 27.1 pg (26.0-34.0); MCHC 32.9 g/dL (31.0-37.0); MCV 82.5 fL (80.0-100.0); MEAN PLATELET VOLUME 8.8 fL (7.4-10.4); MONOCYTES 4.1 % (2-11); NEUTROPHILS 83.8 % (40-80); PLATELET COUNT 231 10x3/uL (130-400); RBC 3.61 10x6/uL (4.00-5.40); RDW 15.6 % (11.5-14.5); WBC 9.7 10x3/uL (4.8-10.8)
[2020-01-16 07:02] LABS: ALBUMIN 1.9 g/dL (3.4-5.0); ALKALINE PHOSPHATASE 132 U/L (30-120); ALT (SGPT) 14 U/L (10-68); BILIRUBIN - TOTAL 0.53 mg/dL (0.2-1.3); CALC OSMOLALITY 272 mosm/kg (275-300); CALCIUM 8.3 mg/dL (8.5-10.1); CARBON DIOXIDE 28.6 mmol/L (21.0-32.0); CHLORIDE - SERUM 100 mmol/L (98-107); CREATININE - SERUM 0.7 mg/dL (0.6-1.3); GLUCOSE 98 mg/dL (74-106); POTASSIUM - SERUM 3.4 mmol/L (3.5-5.1); PROTEIN - SERUM 5.1 g/dL (6.4-8.2); SODIUM 135 mmol/L (136-145); UREA NITROGEN 20 mg/dL (7-18); eGFR NON AFRICAN AMERICAN 87 mL/min (90-120)
--- NOTE | 2020-01-16 07:15 | NUR ---
RECEIVED BEDSIDE REPORT. PT SITTING UP A&O X4, DENIES NEEDS. PIV IN LEFT FOREARM, PATENT AND INFUSING. NGT TO RIGHT NARE, CLAMPED. ABD DISTENDED. PT ABLE TO AMBULATE WITH MIN ASSIST TO BSC. EDUCATED PT ON CL AND NEEDS, VERBALIZED UNDERSTANDING. BED LOW RAILS X2. CL IN REACH.
--- NOTE | 2020-01-16 08:15 | NUR ---
EDUCATED PT ABOUT XR SMALL BOWEL SERIES TO BE COMPLETED TODAY, VERBALIZED UNDERSTANDING. BED LOW, CL IN REACH.
[2020-01-16 08:51] VITALS: BP 148/76
--- NOTE | 2020-01-16 10:17 | MORECARE ---
CASE MANAGEMENT DISCHARGE SUMMARY PATIENT: ANCA PERERA UNIT: [id number] ADM DATE: 01/07/20 AGE: 74 : 45 SEX: F ROOM/BED: D.2228 AUTHOR: JULIANNADOC PHYSICIAN: REFERRING PHYSICIAN: ALEX DING MD DATE OF SERVICE: 01/16/20 Discharge Plan Patient Name: ANCA PERERA Facility: [facility]:[place] : 1945 Planned Disposition: Intermediate Facility Anticipated Discharge Date: Discharge Date: Expected LOS: Initial Reviewer: [id number] Initial Review Date: 01/07/2020 Generated: 01/16/20 11:17 am Comments DCP- Discharge Planning Updated by [id number]: Radha Yvette on 01/15/20 2:[address] Patient Name: ANCA PERERA Admission Status: ER Accout number: [id number] Admission Date: 01-07-2020 : 1945 Admission Diagnosis:PATHOLOGICAL FRACTURE, UNSP SITE, INIT ENCNTR FOR FRACT Attending: ALEX DING Current LOS: 8 Anticipated DC Date: Planned Disposition: Intermediate Facility Primary Insurance: NOVASYSMCR Discharge Planning Comments: CM SPOKE WITH PATIENT TODAY AND SHE WOULD LIKE REHAB AT [facility]. ALFREDO SIGNED AND I WILL FAX INITIAL CLINICALS TO THEM. CM TO FOLLOW AND ASSIST NEEDED WITH DC PLANNING/NEEDS. Rework Operator: Radha Crawford DCP- Discharge Planning Updated by [id number]: Radha Yvette on 01/10/20 2:[address] Patient Name: ANCA PERERA Admission Status: ER Accout number: [id number] Admission Date: 01-07-2020 : 1945 Admission Diagnosis:PATHOLOGICAL FRACTURE, UNSP SITE, INIT ENCNTR FOR FRACT Attending: ALEX DING Current LOS: 3 Anticipated DC Date: Planned Disposition: Intermediate Facility Primary Insurance: NOVASYSMCR Discharge Planning Comments: CM met with patient at bedside after explaining CM role and obtaining verbal consent. CM discussed availability / needs of home health, REHAB and medical equipment. STATES SHE HAS A WALKER AT HOME. I SPOKE WITH HER DAUGHTER ANAHI ON THE PHONE YESTERDAY AND SHE WAS PLANNING TO COME BY TODAY FOR ME TO GIVE HER BROCHURES FROM DIFFERENT REHABS. I LEFT SEVERAL BROSHURES WITH THE PATIENT, SHE STATES SHE WILL LOOK THEM OVER AND MAKE A DECISION. I WILL REVISIT HER TOMORROW. Rework Operator: Radhaaudrey Crawford DCPIA - Discharge Planning Initial Assessment Updated by [id number]: Radha Crawford on 01/10/20 3:49 pm * Is the patient Alert and Oriented? Yes * PCP [facility] * Pharmacy [facility] * Preadmission Environment Home with Family * Equipment Walker * Community resources currently utilized None * Additional services required to return to the preadmission environment? Yes * Has this patient been hospitalized within the prior 30 days at any hospital? No Coverage Notice Reviewer: [id number] - Radha Crawford Notice Issued Date-Time: 01/15/2020 15:50 Notice Type: Patient Choice Letter Notice Delivered To: Patient Relationship to Patient: Vice President Payer Name: Delivery Method: HAND - Hand Delivered Laura Days: Prior Verbal Notification: Recipient Understood Notice: Yes Recipient Signature: Yes Med Rec Note Co-signed by Attending: Coverage Notice Comment: [facility] Last DP export: 01/15/20 2:56 p Patient Name: ANCA PERERA Page 22184 at 1017 All edits/amendments must be made on the electronic document DICTATION DATE: 01/16/20 1017 SUPPLY CHAIN COORDINATOR: RONALDO 01/16/20 1017 RPT#: [id number] DC DATE: STATUS: ADM IN [facility] [address] [place] [address] END OF REPORT
--- NOTE | 2020-01-16 11:00 | NUR ---
PT C/O PAIN 12/27, PROVIDED PAIN MEDS PER ORDER. PT ABD DISTENDED PT INQUIRES ABOUT NGT BEING SUCTIONED, EDUCATED PT THAT WE CANNOT SUCTION AT THIS TIME DUE TO THE DYE BEING USED IN THE SMALL BOWELL SERIES, VERBALIZED UNDERSTANDING. BED LOW, CL IN REACH.
--- NOTE | 2020-01-16 15:33 | NUR ---
Nutrition follow-up: Pt sitting in bed with NGT in place Clear liqiud diet with small amounts of po intake Abdomen distended Pt reports nausea Labs reviewed ProcalAmine PPN @ 75 ml/hr Wt: 89# RDN following.
--- NOTE | 2020-01-16 15:54 | NUR ---
OT NOTE: TRANSFERRED FROM BED TO BS COMMODE WITH MIN ASSIST; PT WITH ATTEMPT TO HAVE BM BUT VERY SMALL. REPORTING PAIN IN UPPER ABD AREA IN THE MIDDLE. PT APPEARS TO BE VERY MISERABLE. ASSIST REQUIRED FOR TOILET HYGIENE. SET UP FOR HAND WASHING. ASHLEY EISENBERG, OTR/L [phone]
--- NOTE | 2020-01-16 18:02 | NUR ---
OT NOTE: PT COMPLETED SUPINE TO SIT WITH MIN A. PT COMPLETED EOB SITTING WITH CGA. PT COMPLETED UB HYGIENE WITH SETUP. PT STATED HER STOMACH IS STILL UPSET. [phone] THANK YOU,KOKO CARLSON.
[2020-01-16 20:00] VITALS: BP 194/77
--- NOTE | 2020-01-17 00:49 | NUR ---
I have reviewed this patient and I concur with the Shift Assessment completed by the Licensed Practical Nurse today this shift.
[2020-01-17 04:00] VITALS: BP 141/75
[2020-01-17 06:08] LABS: BASOPHILS 0.1 % (0-2); EOSINOPHILS 1.6 % (0-7); HEMATOCRIT 32.3 % (36.0-48.0); HEMOGLOBIN 10.6 g/dL (12-16); IMMATURE GRANULOCYTES 0.4 % (0-5); LYMPHOCYTES 13.5 % (15-50); MCHC 32.8 g/dL (31.0-37.0); MCV 82.4 fL (80.0-100.0); MEAN PLATELET VOLUME 9.2 fL (7.4-10.4); MONOCYTES 4.3 % (2-11); NEUTROPHILS 80.1 % (40-80); RBC 3.92 10x6/uL (4.00-5.40); RDW 15.7 % (11.5-14.5)
[2020-01-17 06:25] LABS: PLATELET COUNT 286 10x3/uL (130-400)
[2020-01-17 06:50] LABS: ALBUMIN 2.1 g/dL (3.4-5.0); ALKALINE PHOSPHATASE 147 U/L (30-120); BILIRUBIN - TOTAL 0.47 mg/dL (0.2-1.3); CALC OSMOLALITY 273 mosm/kg (275-300); CARBON DIOXIDE 29.5 mmol/L (21.0-32.0); CHLORIDE - SERUM 98 mmol/L (98-107); CREATININE - SERUM 0.6 mg/dL (0.6-1.3); GLUCOSE 100 mg/dL (74-106); MAGNESIUM - SERUM 2.3 mg/dL (1.8-2.4); POTASSIUM - SERUM 3.6 mmol/L (3.5-5.1); PROTEIN - SERUM 5.6 g/dL (6.4-8.2); SODIUM 135 mmol/L (136-145); UREA NITROGEN 23 mg/dL (7-18); eGFR NON AFRICAN AMERICAN > 90 mL/min (90-120)
[2020-01-17 06:52] LABS: ALT (SGPT) 18 U/L (10-68)
[2020-01-17 07:58] VITALS: BP 175/72
[2020-01-17 11:38] VITALS: BP 152/78
--- NOTE | 2020-01-17 13:11 | NUR ---
OT NOTE: PT FEELING SOME BETTER TODAY. NURSING AND PT REPORT NUMEROUS BMS TODAY. PT REPORTS THAT STOMACH FEELS SOME BETTER. BED MOB WITH MIN ASSIST; AMB IN ROOM WITH ASSEMBLER STEAM AND GAS TURBINE/MIN ASSIST. PT WITH BM UPON AMB AND WAS ASSISTED TO BS COMMODE WITH MIN ASSIST. PERFORMED SINK BATH WITH MOD ASSIST. PT ABLE TO WASH FACE AND BRUSH HAIR WITH L HAND.. R UE REMAINS IN SLING. MOD ASSIST TO DOFF AND LAUREL SOCKS. MAX ASSIST WITH PERINEAL CARE. APPLIED MOISTURE BARRIER PTS BOTTOM WAS VERY RED. PT WAS ABLE TO STAND FOR EXT TIME WITH MIN ASSIST WHILE LINENS WERE CHANGED. ASHLEY EISENBERG, OTR/L [phone]
--- NOTE | 2020-01-17 13:43 | NUR ---
I have reviewed this patient and I concur with the Shift Assessment completed by the Licensed Practical Nurse today this shift.
--- NOTE | 2020-01-17 13:45 | NUR ---
I have reviewed this patient and I concur with the Shift Assessment completed by the Licensed Practical Nurse today this shift.
--- NOTE | 2020-01-17 14:14 | MORECARE ---
CASE MANAGEMENT DISCHARGE SUMMARY PATIENT: ANCA PERERA UNIT: [id number] ADM DATE: 01/07/20 AGE: 74 : 45 SEX: F ROOM/BED: D.2228 AUTHOR: JULIANNADOC PHYSICIAN: REFERRING PHYSICIAN: ALEX DING MD DATE OF SERVICE: 01/17/20 Discharge Plan Patient Name: ANCA PERERA Facility: [facility]:[place] : 1945 Planned Disposition: Assisted Facility Anticipated Discharge Date: Discharge Date: Expected LOS: Initial Reviewer: [id number] Initial Review Date: 01/07/2020 Generated: 01/17/20 3:13 pm Comments DCP- Discharge Planning Updated by [id number]: Radha Crawford on 01/17/20 1:[address] Patient Name: ANCA PERERA Admission Status: ER Accout number: [id number] Admission Date: 01-07-2020 : 1945 Admission Diagnosis:PATHOLOGICAL FRACTURE, UNSP SITE, INIT ENCNTR FOR FRACT Attending: ALEX DING Current LOS: 10 Anticipated DC Date: Planned Disposition: Assisted Facility Primary Insurance: NOVASYSMCR Discharge Planning Comments: CM FAXED UPDATES TO [facility], THEY ARE FOLLOWING PATIENT AND WILL SUBMIT INSURANCE AUTH WHEN WE ANTICIPATE DISCHARGE. THEY WILL NEED A CURRENT NEGATIVE COVID ALSO BEFORE SHE CAN BE ACCEPTED INTO SNF. NEEDS TO BE WITHIN 72 HOURS. Target Aircraft Technician: Radha Crawford DCP- Discharge Planning Updated by [id number]: Radha Crawford on 01/15/20 2:[address] Patient Name: ANCA PERERA Admission Status: ER Accout number: [id number] Admission Date: 01-07-2020 : 1945 Admission Diagnosis:PATHOLOGICAL FRACTURE, UNSP SITE, INIT ENCNTR FOR FRACT Attending: ALEX DING Current LOS: 8 Anticipated DC Date: Planned Disposition: Assisted Facility Primary Insurance: NOVASYSMCR Discharge Planning Comments: CM SPOKE WITH PATIENT TODAY AND SHE WOULD LIKE REHAB AT [facility]. ALFREDO SIGNED AND I WILL FAX INITIAL CLINICALS TO THEM. CM TO FOLLOW AND ASSIST NEEDED WITH DC PLANNING/NEEDS. Target Aircraft Technician: Radha Crawford DCP- Discharge Planning Updated by [id number]: Radha Crawford on 01/10/20 2:[address] Patient Name: ANCA PERERA Admission Status: ER Accout number: [id number] Admission Date: 01-07-2020 : 1945 Admission Diagnosis:PATHOLOGICAL FRACTURE, UNSP SITE, INIT ENCNTR FOR FRACT Attending: ALEX DING Current LOS: 3 Anticipated DC Date: Planned Disposition: Assisted Facility [facility] Discharge Planning Comments: CM met with patient at bedside after explaining CM role and obtaining verbal consent. CM discussed availability / needs of home health, REHAB and medical equipment. STATES SHE HAS A WALKER AT HOME. I SPOKE WITH HER DAUGHTER ANAHI ON THE PHONE YESTERDAY AND SHE WAS PLANNING TO COME BY TODAY FOR ME TO GIVE HER BROCHURES FROM DIFFERENT REHABS. I LEFT SEVERAL BROSHURES WITH THE PATIENT, SHE STATES SHE WILL LOOK THEM OVER AND MAKE A DECISION. I WILL REVISIT HER TOMORROW. Target Aircraft Technician: Radhaaudrey Crawford DCPIA - Discharge Planning Initial Assessment Updated by [id number]: Radha Crawford on 01/10/20 3:49 pm * Is the patient Alert and Oriented? Yes * PCP [facility] * Pharmacy [facility] * Preadmission Environment Home with Family * Equipment Walker * Community resources currently utilized None * Additional services required to return to the preadmission environment? Yes * Has this patient been hospitalized within the prior 30 days at any hospital? No Coverage Notice Reviewer: [id number] - Radha Crawford Notice Issued Date-Time: 01/15/2020 15:50 Notice Type: Patient Choice Letter Notice Delivered To: Patient Relationship to Patient: Media Production Manager Name: Delivery Method: HAND - Hand Delivered Laura Days: Prior Verbal Notification: Recipient Understood Notice: Yes Recipient Signature: Yes Med Rec Note Co-signed by Attending: Coverage Notice Comment: [facility] Last DP export: 01/16/20 9:17 a Patient Name: ANCA PERERA Page 65548 at 1414 All edits/amendments must be made on the electronic document DICTATION DATE: 01/17/20 1413 DROP WIRE ALINER: RONALDO 01/17/20 1413 RPT#: [id number] DC DATE: STATUS: ADM IN [facility] [address] [facility] [place] [address] END OF REPORT
--- NOTE | 2020-01-17 14:59 | NUR ---
PT CONTINUES TO HAVE LOOSE BMS. STATED SHE "FEELS OUT OF BREATH" PLACED PT ON 2L O2 AND PT STATED SHE FELT BETTER, PRN PAIN MEDICAINE GIVEN AND PT STATES THAT HELPED. NO OTHER NEEDS AT THIS TIME. CONTINUE WITH PLAN OF CARE
--- NOTE | 2020-01-17 15:06 | NUR ---
OT NOTE: PT COMPLETED BEDMOB TASKS WITH MIN A. PT COMPLETED EOB SITTING WITH CGA. PT COMPLETED STANDING BALANCE WITH CGA. PT REQUIRED TOTAL A WITH TOILET HYGIENE. THANK YOU,KOKO CARLSON
[2020-01-17 16:37] VITALS: BP 185/67
[2020-01-17 20:00] VITALS: BP 115/52
--- NOTE | 2020-01-17 22:55 | NUR ---
I have reviewed this patient and I concur with the Shift Assessment completed by the Licensed Practical Nurse today this shift.
[2020-01-18] VITALS: BP 165/69
[2020-01-18 04:00] VITALS: BP 171/78
[2020-01-18 06:45] LABS: ALBUMIN 1.9 g/dL (3.4-5.0); ALKALINE PHOSPHATASE 133 U/L (30-120); ALT (SGPT) 16 U/L (10-68); BILIRUBIN - TOTAL 0.41 mg/dL (0.2-1.3); CALC OSMOLALITY 271 mosm/kg (275-300); CALCIUM 8.1 mg/dL (8.5-10.1); CARBON DIOXIDE 24.8 mmol/L (21.0-32.0); CHLORIDE - SERUM 105 mmol/L (98-107); CREATININE - SERUM 0.5 mg/dL (0.6-1.3); GLUCOSE 88 mg/dL (74-106); MAGNESIUM - SERUM 1.8 mg/dL (1.8-2.4); POTASSIUM - SERUM 3.6 mmol/L (3.5-5.1); PROTEIN - SERUM 5.1 g/dL (6.4-8.2); SODIUM 136 mmol/L (136-145); eGFR NON AFRICAN AMERICAN > 90 mL/min (90-120)
[2020-01-18 06:47] LABS: UREA NITROGEN 16 mg/dL (7-18)
[2020-01-18 06:57] LABS: BASOPHILS 0 % (0-2); HEMOGLOBIN 9.1 g/dL (12-16); IMMATURE GRANULOCYTES 0.3 % (0-5); LYMPHOCYTES 11.5 % (15-50); MCH 27.2 pg (26.0-34.0); MCHC 32.5 g/dL (31.0-37.0); MCV 83.6 fL (80.0-100.0); MEAN PLATELET VOLUME 8.9 fL (7.4-10.4); NEUTROPHILS 82.2 % (40-80); PLATELET COUNT 248 10x3/uL (130-400); RBC 3.35 10x6/uL (4.00-5.40); RDW 15.7 % (11.5-14.5); WBC 7.6 10x3/uL (4.8-10.8)
--- NOTE | 2020-01-18 07:00 | NUR ---
PT IS RESTING IN BED WITH EYES OPEN. RESPIRATIONS ARE EVEN AND UNLABORED. PT IS AAO X 4. NG TUBE TO RIGHT NARE IS CLAMPED. SLING TO RIGHT SHOULDER IN PLACE. DRESSING TO RIGHT SHOULDER INPLACE AND IS CDI. PT DENIES PRESENCE OF PAIN/N/V/DYSPNEA AT THIS TIME. PT DENIES PRESENCE OF NUMBNESS/TINGLING TO BUE AND BLE. FALL PRECAUTIONS IN PLACE. BED IS IN THE LOWEST POSITION. CALL LIGHT AND BEDSIDE TABLE ARE WITHIN REACH. SIDE RAILS X 2. PT DENIES FURTHER NEEDS. WILL CONT TO MONITOR.
[2020-01-18 08:07] VITALS: BP 158/56
--- NOTE | 2020-01-18 10:16 | NUR ---
PATIENT HAS REFUSED TO TAKE BREATHING TREATMENT FOR SEVERAL DAYS. PATIENT STATES THAT IF SHE NEEDS ONE SHE WILL LET US KNOW. PATIENT WOULD LIKE THE ORDERED BREATHING TREATMENT PRN.
[2020-01-18 12:04] VITALS: BP 191/97
[2020-01-18 16:47] VITALS: BP 159/74
[2020-01-18 20:00] VITALS: BP 186/83
--- NOTE | 2020-01-18 22:15 | NUR ---
OT NOTE: PT COMPLETED SIT TO STAND WITH SBA/CGA. PT COMPLETED ADL MOB WITH RW REQUIRED CGA. PT REQUIRED SET UP FOR UB HYGIENE TASKS WHILE SITTING EOB. PT REQUESTED TO RETURN TO BED. PT REQUIRED TOTAL A FOR SLING POSITIONING TO SUPPORT RUE. PT EXHIBITED INCREASED AX TOLERANCE WITH FUNCTIONAL TASKS. PT HAD NO C/O PAIN OR NAUSEA. [phone] THANK YOU,KOKO CARLSON
[2020-01-19 04:00] VITALS: BP 179/92
[2020-01-19 05:40] LABS: BASOPHILS 0 % (0-2); EOSINOPHILS 2.1 % (0-7); HEMATOCRIT 29.9 % (36.0-48.0); HEMOGLOBIN 9.7 g/dL (12-16); IMMATURE GRANULOCYTES 0.4 % (0-5); LYMPHOCYTES 11.3 % (15-50); MCH 26.7 pg (26.0-34.0); MCHC 32.4 g/dL (31.0-37.0); MCV 82.4 fL (80.0-100.0); MEAN PLATELET VOLUME 8.9 fL (7.4-10.4); MONOCYTES 4.4 % (2-11); NEUTROPHILS 81.8 % (40-80); PLATELET COUNT 283 10x3/uL (130-400); RBC 3.63 10x6/uL (4.00-5.40); RDW 15.6 % (11.5-14.5); WBC 7.3 10x3/uL (4.8-10.8)
--- NOTE | 2020-01-19 05:47 | NUR ---
I have reviewed this patient and I concur with the Shift Assessment completed by the Licensed Practical Nurse today this shift.
[2020-01-19 06:19] LABS: ALBUMIN 2.1 g/dL (3.4-5.0); ALKALINE PHOSPHATASE 150 U/L (30-120); ALT (SGPT) 18 U/L (10-68); BILIRUBIN - TOTAL 0.54 mg/dL (0.2-1.3); CALC OSMOLALITY 275 mosm/kg (275-300); CALCIUM 8.5 mg/dL (8.5-10.1); CHLORIDE - SERUM 104 mmol/L (98-107); CREATININE - SERUM 0.5 mg/dL (0.6-1.3); GLUCOSE 104 mg/dL (74-106); MAGNESIUM - SERUM 1.8 mg/dL (1.8-2.4); POTASSIUM - SERUM 3.6 mmol/L (3.5-5.1); PROTEIN - SERUM 5.4 g/dL (6.4-8.2); SODIUM 138 mmol/L (136-145); UREA NITROGEN 12 mg/dL (7-18); eGFR NON AFRICAN AMERICAN > 90 mL/min (90-120)
--- NOTE | 2020-01-19 07:15 | NUR ---
REC'D IN BED AWAKE AND ALERT. RESP EVEN AND UNLABORED WITH NO DISTRESS NOTED. CAN EXPRESS NEEDS AND WANTS. NO C/O NOTED OR VOICED. NG TUBE NOTED TO RIGHT NARE CLAMPED AT THIS TIME. ASSESSMENT COMPLETED. C/L IN REACH AT BEDSIDE.
[2020-01-19 10:10] VITALS: BP 189/82
[2020-01-19 13:50] VITALS: BP 189/86
--- NOTE | 2020-01-19 16:11 | NUR ---
I have reviewed this patient and I concur with the Shift Assessment completed by the Licensed Practical Nurse today this shift.
--- NOTE | 2020-01-19 16:15 | MORECARE ---
CASE MANAGEMENT DISCHARGE SUMMARY PATIENT: ANCA PERERA UNIT: [id number] ADM DATE: 01/07/20 AGE: 74 : 45 SEX: F ROOM/BED: D.2228 AUTHOR: MICKI LEVINE PHYSICIAN: REFERRING PHYSICIAN: ALEX DING MD DATE OF SERVICE: 01/19/20 Discharge Plan Patient Name: ANCA PERERA Facility: [facility]:[place] : 1945 Planned Disposition: Alf Facility Anticipated Discharge Date: Discharge Date: Expected LOS: Initial Reviewer: [id number] Initial Review Date: 01/07/2020 Generated: 01/19/20 5:14 pm Comments DCP- Discharge Planning Updated by [id number]: Radha Crawford on 01/19/20 3:[address] Patient Name: ANCA PERERA Admission Status: ER Accout number: [id number] Admission Date: 01-07-2020 : 1945 Admission Diagnosis:PATHOLOGICAL FRACTURE, UNSP SITE, INIT ENCNTR FOR FRACT Attending: ALEX DING Current LOS: 12 Anticipated DC Date: Planned Disposition: Alf Facility Primary Insurance: NOVASYSMCR Discharge Planning Comments: CM SPOKE WITH [facility] ABOUT POTENTIAL DC WEDNESDAY. UPDATED CLINICALS FAXED TO THEM AND A CURRENT COVID ORDERED TODAY BECAUSE WILL NEED A NEGATIVE BACK BEFORE SHE CAN BE ACCEPTED INTO SNF. WE WILL BE WAITING INSURANCE AUTH WITH ANTICIPATION OF DC WEDNESDAY IF IMPROVED AND ACCEPTABLE WITH PHYSICIANS. CM TO FOLLOW AND ASSIST NEEDED. Rural Mail Carrier: Radha Crawford DCP- Discharge Planning Updated by [id number]: Radha Crawford on 01/17/20 1:[address] Patient Name: ANCA PERERA Admission Status: ER Accout number: [id number] Admission Date: 01-07-2020 : 1945 Admission Diagnosis:PATHOLOGICAL FRACTURE, UNSP SITE, INIT ENCNTR FOR FRACT Attending: ALEX DING Current LOS: 10 Anticipated DC Date: Planned Disposition: Alf Facility Primary Insurance: NOVASYSMCR Discharge Planning Comments: CM FAXED UPDATES TO [facility], THEY ARE FOLLOWING PATIENT AND WILL SUBMIT INSURANCE AUTH WHEN WE ANTICIPATE DISCHARGE. THEY WILL NEED A CURRENT NEGATIVE COVID ALSO BEFORE SHE CAN BE ACCEPTED INTO SNF. NEEDS TO BE WITHIN 72 HOURS. Rural Mail Carrier: Radha Crawford DCP- Discharge Planning Updated by [id number]: Radha Crawford on 01/15/20 2:[address] Patient Name: ANCA PERERA Admission Status: ER Accout number: [id number] Admission Date: 01-07-2020 : 1945 Admission Diagnosis:PATHOLOGICAL FRACTURE, UNSP SITE, INIT ENCNTR FOR FRACT Attending: ALEX DING Current LOS: 8 Anticipated DC Date: Planned Disposition: Alf Facility [facility] Discharge Planning Comments: CM SPOKE WITH PATIENT TODAY AND SHE WOULD LIKE REHAB AT [facility]. ALFREDO SIGNED AND I WILL FAX INITIAL CLINICALS TO THEM. CM TO FOLLOW AND ASSIST NEEDED WITH DC PLANNING/NEEDS. Rural Mail Carrier: Radha Yvette DCP- Discharge Planning Updated by [id number]: Radha Crawford on 01/10/20 2:[address] Patient Name: ANCA PERERA Admission Status: ER Accout number: [id number] Admission Date: 01-07-2020 : 1945 Admission Diagnosis:PATHOLOGICAL FRACTURE, UNSP SITE, INIT ENCNTR FOR FRACT Attending: ALEX DING Current LOS: 3 Anticipated DC Date: Planned Disposition: Alf Facility [facility] Discharge Planning Comments: CM met with patient at bedside after explaining CM role and obtaining verbal consent. CM discussed availability / needs of home health, REHAB and medical equipment. STATES SHE HAS A WALKER AT HOME. I SPOKE WITH HER DAUGHTER ANAHI ON THE PHONE YESTERDAY AND SHE WAS PLANNING TO COME BY TODAY FOR ME TO GIVE HER BROCHURES FROM DIFFERENT REHABS. I LEFT SEVERAL BROSHURES WITH THE PATIENT, SHE STATES SHE WILL LOOK THEM OVER AND MAKE A DECISION. I WILL REVISIT HER TOMORROW. Rural Mail Carrier: Radha Crawford DCPIA - Discharge Planning Initial Assessment Updated by [id number]: Radha Crawford on 01/10/20 3:49 pm * Is the patient Alert and Oriented? Yes * PCP [facility] * Pharmacy [facility] * Preadmission Environment Home with Family * Equipment Walker * Community resources currently utilized None * Additional services required to return to the preadmission environment? Yes * Has this patient been hospitalized within the prior 30 days at any hospital? No Coverage Notice Reviewer: [id number] Khloe Crawford Notice Issued Date-Time: 01/15/2020 15:50 Notice Type: Patient Choice Letter Notice Delivered To: Patient Relationship to Patient: Epic Beacon Analyst Name: Delivery Method: HAND - Hand Delivered Laura Days: Prior Verbal Notification: Recipient Understood Notice: Yes Recipient Signature: Yes Med Rec Note Co-signed by Attending: Coverage Notice Comment: [facility] Last DP export: 01/17/20 1:14 p Patient Name: ANCA PERERA Page 10938 at 1615 All edits/amendments must be made on the electronic document DICTATION DATE: 01/19/20 1615 TIMBER HEWER: RONALDO 01/19/20 1615 RPT#: [id number] DC DATE: STATUS: ADM IN [facility] [address] [place] [address] END OF REPORT
[2020-01-19 16:49] VITALS: BP 176/79
--- NOTE | 2020-01-19 17:05 | NUR ---
OT NOTE: PT COMPLETED SUPINE TO SIT WITH MIN A. PT COMPLETED SIT TO STAND WITH MIN A. PT COMPLETED BED TO C TSF WITH MIN A. PT REQUIRED SBA WITH TOILETING TASKS. [phone] THANK YOU, KOKO CARLSON
[2020-01-19 20:00] VITALS: BP 162/76
--- NOTE | 2020-01-20 03:44 | NUR ---
I have reviewed this patient and I concur with the Shift Assessment completed by the Licensed Practical Nurse today this shift.
[2020-01-20 04:00] VITALS: BP 149/71
--- NOTE | 2020-01-20 05:00 | NUR ---
DRESSING TO RIGHT SHOULDER REMOVED, AREA CLEANSED, PAT DRY, BORDERED GAUZE APPLIED, CTM.
[2020-01-20 06:53] LABS: BASOPHILS 0 % (0-2); EOSINOPHILS 1.8 % (0-7); HEMOGLOBIN 8.8 g/dL (12-16); IMMATURE GRANULOCYTES 0.7 % (0-5); LYMPHOCYTES 10.2 % (15-50); MCH 27.1 pg (26.0-34.0); MCHC 32.6 g/dL (31.0-37.0); MCV 83.1 fL (80.0-100.0); MEAN PLATELET VOLUME 9.1 fL (7.4-10.4); MONOCYTES 5.9 % (2-11); NEUTROPHILS 81.4 % (40-80); PLATELET COUNT 305 10x3/uL (130-400); RBC 3.25 10x6/uL (4.00-5.40); RDW 15.9 % (11.5-14.5); WBC 6.8 10x3/uL (4.8-10.8)
--- NOTE | 2020-01-20 07:15 | NUR ---
REC'D IN BED AWAKE AND ALERT. RESP EVEN AND UNLABORED WITH NO DISTRESS NOTED OR VOICED. HAS O2 IN USE VIA NC. NO C/O NOTED OR VOICED. ASSESSMENT COMPLETED. UP AB ELLA TO BSC. C/L IN REACH AT BEDSIDE.
[2020-01-20 07:48] LABS: ALBUMIN 1.9 g/dL (3.4-5.0); ALKALINE PHOSPHATASE 135 U/L (30-120); ALT (SGPT) 19 U/L (10-68); BILIRUBIN - TOTAL 0.31 mg/dL (0.2-1.3); CALC OSMOLALITY 272 mosm/kg (275-300); CALCIUM 8.3 mg/dL (8.5-10.1); CARBON DIOXIDE 24.2 mmol/L (21.0-32.0); CHLORIDE - SERUM 105 mmol/L (98-107); CREATININE - SERUM 0.6 mg/dL (0.6-1.3); GLUCOSE 93 mg/dL (74-106); POTASSIUM - SERUM 3.9 mmol/L (3.5-5.1); SODIUM 136 mmol/L (136-145); eGFR NON AFRICAN AMERICAN > 90 mL/min (90-120)
[2020-01-20 07:52] LABS: UREA NITROGEN 16 mg/dL (7-18)
[2020-01-20 09:15] VITALS: BP 132/67
[2020-01-20 12:23] VITALS: BP 129/84
[2020-01-20 16:00] VITALS: BP 127/60
--- NOTE | 2020-01-20 17:25 | NUR ---
I have reviewed this patient and I concur with the Shift Assessment completed by the Licensed Practical Nurse today this shift.
--- NOTE | 2020-01-20 19:00 | NUR ---
RECEIVED REPORT, ASSUMED CARE, BREATHING EVEN UNLABORED, CALL LIGHT IN REACH, BED LOWEST POSITION, DENIES NEEDS, NO S/S OF DISTRESS NOTED, IV LFA PATENT, 2L NC
[2020-01-20 21:35] VITALS: BP 141/71
[2020-01-21] VITALS: BP 142/69
[2020-01-21 04:00] VITALS: BP 162/68
[2020-01-21 06:18] LABS: BASOPHILS 0 % (0-2); EOSINOPHILS 3.5 % (0-7); HEMATOCRIT 25.4 % (36.0-48.0); HEMOGLOBIN 8.4 g/dL (12-16); IMMATURE GRANULOCYTES 0.9 % (0-5); LYMPHOCYTES 19.3 % (15-50); MCH 27.5 pg (26.0-34.0); MCHC 33.1 g/dL (31.0-37.0); MCV 83.3 fL (80.0-100.0); MEAN PLATELET VOLUME 8.8 fL (7.4-10.4); MONOCYTES 8.9 % (2-11); NEUTROPHILS 67.4 % (40-80); PLATELET COUNT 325 10x3/uL (130-400); RBC 3.05 10x6/uL (4.00-5.40); RDW 16.3 % (11.5-14.5)
[2020-01-21 06:19] LABS: WBC 4.6 10x3/uL (4.8-10.8)
[2020-01-21 06:36] LABS: ALBUMIN 1.7 g/dL (3.4-5.0); ALKALINE PHOSPHATASE 132 U/L (30-120); ALT (SGPT) 19 U/L (10-68); BILIRUBIN - TOTAL 0.29 mg/dL (0.2-1.3); CALC OSMOLALITY 276 mosm/kg (275-300); CARBON DIOXIDE 26.6 mmol/L (21.0-32.0); CHLORIDE - SERUM 107 mmol/L (98-107); CREATININE - SERUM 0.6 mg/dL (0.6-1.3); GLUCOSE 82 mg/dL (74-106); MAGNESIUM - SERUM 1.8 mg/dL (1.8-2.4); POTASSIUM - SERUM 4.1 mmol/L (3.5-5.1); PROTEIN - SERUM 4.7 g/dL (6.4-8.2); SODIUM 138 mmol/L (136-145); UREA NITROGEN 18 mg/dL (7-18); eGFR NON AFRICAN AMERICAN > 90 mL/min (90-120)
--- NOTE | 2020-01-21 08:10 | NUR ---
PT ASSISTED TO BSC X 1 ASSIST. PT WAS ABLE TO VOID. RESP EVEN AND UNLABORED. O2 @ 2L NC IN PLACE. PT REQUIRES MINIMAL ASSISTANCE WITH TRANSFER BACK TO BED. SLING NOTED TO RIGHT ARM. DRESSING TO RIGHT SHOULDER C/D/I. IV TO LEFT FOREARM WITH NS @ 75ML/HR, PROCALAMINE @ 75 ML/HR BOTH INFUSING VIA PUMP, SITE WITHOUT REDNESS OR EDEMA. DENIES PAIN AT THIS TIME. DENIES FURTHER NEEDS. CL WITHIN REACH. ENCOURAGED TO CALL WITH NEEDS. CONTINUE POC
[2020-01-21 08:36] VITALS: BP 125/74
[2020-01-21 11:51] VITALS: BP 140/75
[2020-01-21 16:22] VITALS: BP 126/73
--- NOTE | 2020-01-21 19:00 | NUR ---
RECEIVED REPORT, ASSUMED CARE, BREATHING EVEN UNLABORED, CALL LIGHT IN REACH, BED LOWEST POSITION, DENIES NEEDS, NO S/S OF DISTRESS NOTED, IV LFA PATENT, 2L NC
[2020-01-21 20:00] VITALS: BP 131/62
[2020-01-22] VITALS: BP 161/62
--- NOTE | 2020-01-22 03:38 | NUR ---
I have reviewed this patient and I concur with the Shift Assessment completed by the Licensed Practical Nurse today this shift.
[2020-01-22 04:00] VITALS: BP 127/65
[2020-01-22 05:53] LABS: BASOPHILS 0.2 % (0-2); EOSINOPHILS 3.3 % (0-7); HEMATOCRIT 27.4 % (36.0-48.0); HEMOGLOBIN 8.6 g/dL (12-16); IMMATURE GRANULOCYTES 0.7 % (0-5); LYMPHOCYTES 26.1 % (15-50); MCH 26.5 pg (26.0-34.0); MCHC 31.4 g/dL (31.0-37.0); MCV 84.3 fL (80.0-100.0); MONOCYTES 9.1 % (2-11); NEUTROPHILS 60.6 % (40-80); PLATELET COUNT 353 10x3/uL (130-400); RBC 3.25 10x6/uL (4.00-5.40); RDW 16.4 % (11.5-14.5); WBC 4.5 10x3/uL (4.8-10.8)
[2020-01-22 06:15] LABS: ALBUMIN 1.9 g/dL (3.4-5.0); ALKALINE PHOSPHATASE 146 U/L (30-120); ALT (SGPT) 15 U/L (10-68); BILIRUBIN - TOTAL 0.32 mg/dL (0.2-1.3); CALC OSMOLALITY 280 mosm/kg (275-300); CALCIUM 8.3 mg/dL (8.5-10.1); CARBON DIOXIDE 27.4 mmol/L (21.0-32.0); CHLORIDE - SERUM 107 mmol/L (98-107); CREATININE - SERUM 0.6 mg/dL (0.6-1.3); GLUCOSE 79 mg/dL (74-106); MAGNESIUM - SERUM 1.7 mg/dL (1.8-2.4); POTASSIUM - SERUM 4.1 mmol/L (3.5-5.1); SODIUM 139 mmol/L (136-145); eGFR NON AFRICAN AMERICAN > 90 mL/min (90-120)
[2020-01-22 06:21] LABS: UREA NITROGEN 23 mg/dL (7-18)
--- NOTE | 2020-01-22 07:58 | NUR ---
PATIENT SITING UP IN BED AWAKE AND ALERT. IV IN LT FA SL, PATIENT HAS 2L NC PATIENT STATES SHE FEELS MUCH BETTER TODAY, NO NEEDS VOICED AT THIS TIME. ASSUME PT CARE
[2020-01-22 09:05] VITALS: BP 121/66
--- NOTE | 2020-01-22 09:38 | MORECARE ---
CASE MANAGEMENT DISCHARGE SUMMARY PATIENT: ANCA PERERA UNIT: [id number] ADM DATE: 01/07/20 AGE: 74 : 45 SEX: F ROOM/BED: D.2228 AUTHOR: JULIANNADOC PHYSICIAN: REFERRING PHYSICIAN: ALEX DING MD DATE OF SERVICE: 01/22/20 Discharge Plan Patient Name: ANCA PERERA Facility: [facility]:[place] : 1945 Planned Disposition: Custodial Facility Anticipated Discharge Date: Discharge Date: Expected LOS: Initial Reviewer: [id number] Initial Review Date: 01/07/2020 Generated: 01/22/20 10:37 am Comments DCP- Discharge Planning Updated by [id number]: Radha Crawford on 01/22/20 8:[address] Patient Name: ANCA PERERA Admission Status: ER Accout number: [id number] Admission Date: 01-07-2020 : 1945 Admission Diagnosis:PATHOLOGICAL FRACTURE, UNSP SITE, INIT ENCNTR FOR FRACT Attending: ALEX DING Current LOS: 15 Anticipated DC Date: Planned Disposition: Custodial Facility Primary Insurance: NOVASYCR Discharge Planning Comments: CM SPOKE WITH MELANIE AT [facility] AND FAXED UPDATED CLINICALS AND NEGATIVE COVID. THEY ARE SUBMITTING FOR AUTH TODAY. WAITING CALL BACK WITH DECISION. CM TO FOLLOW AND ASSIST NEEDED. Senior Manager Creative Services: Radha Crawford DCP- Discharge Planning Updated by [id number]: Radha Crawford on 01/19/20 3:[address] Patient Name: ANCA PERERA Admission Status: ER Accout number: [id number] Admission Date: 01-07-2020 : 1945 Admission Diagnosis:PATHOLOGICAL FRACTURE, UNSP SITE, INIT ENCNTR FOR FRACT Attending: ALEX DING Current LOS: 12 Anticipated DC Date: Planned Disposition: Custodial Facility Primary Insurance: NOVASYSMCR Discharge Planning Comments: CM SPOKE WITH [facility] ABOUT POTENTIAL DC WEDNESDAY. UPDATED CLINICALS FAXED TO THEM AND A CURRENT COVID ORDERED TODAY BECAUSE WILL NEED A NEGATIVE BACK BEFORE SHE CAN BE ACCEPTED INTO SNF. WE WILL BE WAITING INSURANCE AUTH WITH ANTICIPATION OF DC WEDNESDAY IF IMPROVED AND ACCEPTABLE WITH PHYSICIANS. CM TO FOLLOW AND ASSIST NEEDED. Senior Manager Creative Services: Radha Crawford DCP- Discharge Planning Updated by [id number]: Radha Yvette on 01/17/20 1:[address] Patient Name: ANCA PERERA Admission Status: ER Accout number: [id number] Admission Date: 01-07-2020 : 1945 Admission Diagnosis:PATHOLOGICAL FRACTURE, UNSP SITE, INIT ENCNTR FOR FRACT Attending: ALEX DING Current LOS: 10 Anticipated DC Date: Planned Disposition: Custodial Facility Primary Insurance: NOVASYSMCR Discharge Planning Comments: CM FAXED UPDATES TO [facility], THEY ARE FOLLOWING PATIENT AND WILL SUBMIT INSURANCE AUTH WHEN WE ANTICIPATE DISCHARGE. THEY WILL NEED A CURRENT NEGATIVE COVID ALSO BEFORE SHE CAN BE ACCEPTED INTO SNF. NEEDS TO BE WITHIN 72 HOURS. Senior Manager Creative Services: Radha Crawford DCP- Discharge Planning Updated by [email or web address]: Radha Crawford on 01/15/20 2:[address] Patient Name: ANCA PERERA Admission Status: ER Accout number: [id number] Admission Date: 01-07-2020 : 1945 Admission Diagnosis:PATHOLOGICAL FRACTURE, UNSP SITE, INIT ENCNTR FOR FRACT Attending: ALEX DING Current LOS: 8 Anticipated DC Date: Planned Disposition: Custodial Facility Primary Insurance: NOVASYSMCR Discharge Planning Comments: CM SPOKE WITH PATIENT TODAY AND SHE WOULD LIKE REHAB AT [facility]. ALFR[facility]O SIGNED AND I WILL FAX INITIAL CLINICALS TO THEM. CM TO FOLLOW AND ASSIST NEEDED WITH DC PLANNING/NEEDS. Senior Manager Creative Services: Radha Crawford DCP- Discharge Planning Updated by [id number]: Radha Crawford on 01/10/20 2:[address] Patient Name: ANCA PERERA Admission Status: ER Accout number: [id number] Admission Date: 01-07-2020 : 1945 Admission Diagnosis:PATHOLOGICAL FRACTURE, UNSP SITE, INIT ENCNTR FOR FRACT Attending: ALEX DING Current LOS: 3 Anticipated DC Date: Planned Disposition: Custodial Facility Primary Insurance: NOVASYSMCR Discharge Planning Comments: CM met with patient at bedside after explaining CM role and obtaining verbal consent. CM discussed availability / needs of home health, REHAB and medical equipment. STATES SHE HAS A WALKER AT HOME. I SPOKE WITH HER DAUGHTER ANAHI ON THE PHONE YESTERDAY AND SHE WAS PLANNING TO COME BY TODAY FOR ME TO GIVE HER BROCHURES FROM DIFFERENT REHABS. I LEFT SEVERAL BROSHURES WITH THE PATIENT, SHE STATES SHE WILL LOOK THEM OVER AND MAKE A DECISION. I WILL REVISIT HER TOMORROW. Senior Manager Creative Services: Radha Yvette DCPIA - Discharge Planning Initial Assessment Updated by [id number]: Radha Crawford on 01/10/20 3:49 pm * Is the patient Alert and Oriented? Yes * PCP TERRIE * Pharmacy [facility] * Preadmission Environment Home with Family * Equipment Walker * Community resources currently utilized None * Additional services required to return to the preadmission environment? Yes * Has this patient been hospitalized within the prior 30 days at any hospital? No Coverage Notice Reviewer: [id number] - Radha Crawford Notice Issued Date-Time: 01/15/2020 15:50 Notice Type: Patient Choice Letter Notice Delivered To: Patient Relationship to Patient: Deskidding Machine Operator Name: Delivery Method: HAND - Hand Delivered Laura Days: Prior Verbal Notification: Recipient Understood Notice: Yes Recipient Signature: Yes Med Rec Note Co-signed by Attending: Coverage Notice Comment: [facility] Last DP export: 01/19/20 3:15 p Patient Name: ANCA PERERA Page 23267 at 0938 All edits/amendments must be made on the electronic document DICTATION DATE: 01/22/20936 DESKTOP SUPPORT ASSOCIATE: RONALDO 01/22/20936 RPT#: [id number] DC DATE: STATUS: ADM IN [facility] [address] [place] [address] END OF REPORT
--- NOTE | 2020-01-22 10:28 | NUR ---
I have reviewed this patient and I concur with the Shift Assessment completed by the Licensed Practical Nurse today this shift.
[2020-01-22 12:38] VITALS: BP 148/70
--- NOTE | 2020-01-22 14:48 | NUR ---
Nutrition follow-up: Pts diet advanced to regular ProcalAmine PPN discontinued Per nurse, pt tolerating regular diet +BM Labs reviewed Wt: 89# RDN following.
[2020-01-22 15:00] VITALS: BP 134/66
--- NOTE | 2020-01-22 15:19 | NUR ---
OT NOTE: PT DOING SO MUCH BETTER. BED MOB INDEP; TRANSFER TO TOILET WITH CGA; IN ROOM AMB WITH NAVY DIVER; SINK HYGIENE WITH MIN ASSIST..REMAINS WITH SLING TO R UE. AMB APPROX 200 FT WITH MIN ASSIST AND NO ASSITIVE DEVICE WITH 1 REST BREAK. PT ABLE TO GET INTO AND OUT OF BED WITHOUT ASSIST. ASHLEY EISENBERG, OTR/L [phone]
[2020-01-22 20:00] VITALS: BP 137/68
--- NOTE | 2020-01-22 20:30 | NUR ---
A&0 X 4. UP TO BSC, STAND BY ASSIST. DENIES PAIN AT THIS TIME. CTM.
[2020-01-23] VITALS: BP 136/71
--- NOTE | 2020-01-23 02:23 | NUR ---
I have reviewed this patient and I concur with the Shift Assessment completed by the Licensed Practical Nurse today this shift.
[2020-01-23 04:00] VITALS: BP 149/73
[2020-01-23 06:51] LABS: BASOPHILS 0.2 % (0-2); EOSINOPHILS 2.4 % (0-7); HEMATOCRIT 29.5 % (36.0-48.0); HEMOGLOBIN 9.5 g/dL (12-16); IMMATURE GRANULOCYTES 0.6 % (0-5); LYMPHOCYTES 22.3 % (15-50); MCH 27.1 pg (26.0-34.0); MCHC 32.2 g/dL (31.0-37.0); MEAN PLATELET VOLUME 8.8 fL (7.4-10.4); MONOCYTES 7.7 % (2-11); NEUTROPHILS 66.8 % (40-80); PLATELET COUNT 417 10x3/uL (130-400); RBC 3.51 10x6/uL (4.00-5.40); RDW 16.6 % (11.5-14.5)
[2020-01-23 06:52] LABS: WBC 6.2 10x3/uL (4.8-10.8)
[2020-01-23 07:00] VITALS: BP 137/76
[2020-01-23 07:03] LABS: ALBUMIN 2.2 g/dL (3.4-5.0); ALKALINE PHOSPHATASE 169 U/L (30-120); ALT (SGPT) 16 U/L (10-68); BILIRUBIN - TOTAL 0.31 mg/dL (0.2-1.3); CALC OSMOLALITY 275 mosm/kg (275-300); CALCIUM 8.7 mg/dL (8.5-10.1); CARBON DIOXIDE 27.9 mmol/L (21.0-32.0); CHLORIDE - SERUM 104 mmol/L (98-107); CREATININE - SERUM 0.7 mg/dL (0.6-1.3); GLUCOSE 88 mg/dL (74-106); MAGNESIUM - SERUM 1.8 mg/dL (1.8-2.4); POTASSIUM - SERUM 3.9 mmol/L (3.5-5.1); PROTEIN - SERUM 5.5 g/dL (6.4-8.2); SODIUM 138 mmol/L (136-145); eGFR NON AFRICAN AMERICAN 87 mL/min (90-120)
[2020-01-23 07:04] LABS: UREA NITROGEN 14 mg/dL (7-18)
[2020-01-23 11:00] VITALS: BP 137/74
--- NOTE | 2020-01-23 18:11 | NUR ---
I have reviewed this patient and I concur with the Shift Assessment completed by the Licensed Practical Nurse today this shift.
--- NOTE | 2020-01-23 19:38 | NUR ---
REFUSING UPDRAFTS. IS USING HOME MDI -PROAIR 1-2 X DAY PRN
[2020-01-23 20:00] VITALS: BP 134/69
--- NOTE | 2020-01-23 20:00 | NUR ---
SUPINE IN BED, SON AT BEDSIDE. A&O X 4, DENIES NEEDS, DRESSING TO RIGHT SHOULDER CDI, CTM.
[2020-01-24] VITALS: BP 147/69
[2020-01-24 04:00] VITALS: BP 165/77
[2020-01-24 06:40] LABS: BASOPHILS 0.4 % (0-2); EOSINOPHILS 2.6 % (0-7); HEMATOCRIT 27.4 % (36.0-48.0); HEMOGLOBIN 8.7 g/dL (12-16); IMMATURE GRANULOCYTES 0.6 % (0-5); LYMPHOCYTES 28.1 % (15-50); MCH 26.5 pg (26.0-34.0); MCHC 31.8 g/dL (31.0-37.0); MCV 83.5 fL (80.0-100.0); MEAN PLATELET VOLUME 8.7 fL (7.4-10.4); MONOCYTES 6.9 % (2-11); NEUTROPHILS 61.4 % (40-80); PLATELET COUNT 426 10x3/uL (130-400); RBC 3.28 10x6/uL (4.00-5.40); RDW 16.4 % (11.5-14.5); WBC 5.4 10x3/uL (4.8-10.8)
[2020-01-24 06:59] LABS: CALC OSMOLALITY 277 mosm/kg (275-300); CALCIUM 8.4 mg/dL (8.5-10.1); CARBON DIOXIDE 27.5 mmol/L (21.0-32.0); CHLORIDE - SERUM 106 mmol/L (98-107); CREATININE - SERUM 0.7 mg/dL (0.6-1.3); GLUCOSE 104 mg/dL (74-106); MAGNESIUM - SERUM 1.8 mg/dL (1.8-2.4); PHOSPHOROUS 3.3 mg/dL (2.5-4.9); POTASSIUM - SERUM 3.6 mmol/L (3.5-5.1); SODIUM 139 mmol/L (136-145); UREA NITROGEN 12 mg/dL (7-18); eGFR NON AFRICAN AMERICAN 87 mL/min (90-120)
[2020-01-24 08:02] VITALS: BP 157/72
--- NOTE | 2020-01-24 08:27 | NUR ---
RESTING IN BED, NO DISTRESS NOTED, SLING TO R ARM, SL IN PLACE, DENIES PAIN, CONT TO MONITOR FOR TRANSFER TODAY
--- NOTE | 2020-01-24 09:43 | NUR ---
PATTIE REMOVED FROM R SHOULDER, GISELL WELL, CONT TO MONITOR
[2020-01-24] MEDS ORDERED: MIRALAX17 GM PO (10:09)
[2020-01-24 12:02] VITALS: BP 137/67
--- NOTE | 2020-01-24 12:54 | NUR ---
REPORT CALLED TO [facility], SPOKE WITH TATO ZAMUDIO TO TRANSPORT AT 330, IV REMOVED, TIP INTACT
--- NOTE | 2020-01-24 12:57 | MORECARE ---
CASE MANAGEMENT DISCHARGE SUMMARY PATIENT: ANCA PERERA UNIT: [id number] ADM DATE: 01/07/20 AGE: 74 : 45 SEX: F ROOM/BED: D.2228 AUTHOR: JULIANNADOC PHYSICIAN: REFERRING PHYSICIAN: ALEX DING MD DATE OF SERVICE: 01/24/20 Discharge Plan Patient Name: ANCA PERERA Facility: [facility]:[place] : 1945 Planned Disposition: Half-Way Facility Anticipated Discharge Date: Discharge Date: Expected LOS: Initial Reviewer: [id number] Initial Review Date: 01/07/2020 Generated: 01/24/20 1:57 pm Comments DCP- Discharge Planning Updated by [id number]: Radha Crawford on 01/24/20 11:[address] Patient Name: ANCA PERERA Admission Status: ER Accout number: [id number] Admission Date: 01-07-2020 : 1945 Admission Diagnosis:PATHOLOGICAL FRACTURE, UNSP SITE, INIT ENCNTR FOR FRACT Attending: ALEX DING Current LOS: 17 Anticipated DC Date: Planned Disposition: Half-Way Facility Primary Insurance: NOVASYSMCR Discharge Planning Comments: [facility] WILL SEND TRANSPORT TO PICK PATIENT UP AT APPROX 1530 TODAY. RN CAN CALL REPORT TO [phone]. DC SUM AND MED LIST FAXED. CM TO FOLLOW AND ASSIST NEEDED. Globe Mounter: Radha Crawford DCP- Discharge Planning Updated by [id number]: Radha Crawford on 01/22/20 8:[address] Patient Name: ANCA PERERA Admission Status: ER Accout number: [id number] Admission Date: 01-07-2020 : 1945 Admission Diagnosis:PATHOLOGICAL FRACTURE, UNSP SITE, INIT ENCNTR FOR FRACT Attending: ALEX DING Current LOS: 15 Anticipated DC Date: Planned Disposition: Half-Way Facility Primary Insurance: NOVASYSMCR Discharge Planning Comments: CM SPOKE WITH MELANIE AT [facility] AND FAXED UPDATED CLINICALS AND NEGATIVE COVID. THEY ARE SUBMITTING FOR AUTH TODAY. WAITING CALL BACK WITH DECISION. CM TO FOLLOW AND ASSIST NEEDED. Globe Mounter: Radha Crawford DCP- Discharge Planning Updated by [id number]: Radha Crawford on 01/19/20 3:[address] Patient Name: ANCA PERERA Admission Status: ER Accout number: [id number] Admission Date: 01-07-2020 : 1945 Admission Diagnosis:PATHOLOGICAL FRACTURE, UNSP SITE, INIT ENCNTR FOR FRACT Attending: ALEX DING Current LOS: 12 Anticipated DC Date: Planned Disposition: Half-Way Facility Primary Insurance: NOVASYSMCR Discharge Planning Comments: CM SPOKE WITH [facility] ABOUT POTENTIAL DC WEDNESDAY. UPDATED CLINICALS FAXED TO THEM AND A CURRENT COVID ORDERED TODAY BECAUSE WILL NEED A NEGATIVE BACK BEFORE SHE CAN BE ACCEPTED INTO SNF. WE WILL BE WAITING INSURANCE AUTH WITH ANTICIPATION OF DC WEDNESDAY IF IMPROVED AND ACCEPTABLE WITH PHYSICIANS. CM TO FOLLOW AND ASSIST NEEDED. Globe Mounter: Radha Crawford DCP- Discharge Planning Updated by [id number]: Radha Crawford on 01/17/20 1:[address] Patient Name: ANCA PERERA Admission Status: ER Accout number: [id number] Admission Date: 01-07-2020 : 1945 Admission Diagnosis:PATHOLOGICAL FRACTURE, UNSP SITE, INIT ENCNTR FOR FRACT Attending: ALEX DING Current LOS: 10 Anticipated DC Date: Planned Disposition: Half-Way Facility Primary Insurance: NOVASYCR Discharge Planning Comments: CM FAXED UPDATES TO [facility], THEY ARE FOLLOWING PATIENT AND WILL SUBMIT INSURANCE AUTH WHEN WE ANTICIPATE DISCHARGE. THEY WILL NEED A CURRENT NEGATIVE COVID ALSO BEFORE SHE CAN BE ACCEPTED INTO SNF. NEEDS TO BE WITHIN 72 HOURS. Globe Mounter: Radha Crawford DCP- Discharge Planning Updated by [id number]: Radha Crawford on 01/15/20 2:[address] Patient Name: ANCA PERERA Admission Status: ER Accout number: [id number] Admission Date: 01-07-2020 : 1945 Admission Diagnosis:PATHOLOGICAL FRACTURE, UNSP SITE, INIT ENCNTR FOR FRACT Attending: ALEX DING Current LOS: 8 Anticipated DC Date: Planned Disposition: Half-Way Facility Primary Insurance: NOVASYSMCR Discharge Planning Comments: CM SPOKE WITH PATIENT TODAY AND SHE WOULD LIKE REHAB AT [facility]. ALFREDO SIGNED AND I WILL FAX INITIAL CLINICALS TO THEM. CM TO FOLLOW AND ASSIST NEEDED WITH DC PLANNING/NEEDS. Globe Mounter: Radha Crawford DCP- Discharge Planning Updated by [id number]: Radha Crawford on 01/10/20 2:[address] Patient Name: ANCA PEERRA Admission Status: ER Accout number: [id number] Admission Date: 01-07-2020 : 1945 Admission Diagnosis:PATHOLOGICAL FRACTURE, UNSP SITE, INIT ENCNTR FOR FRACT Attending: ALEX DING Current LOS: 3 Anticipated DC Date: Planned Disposition: Half-Way Facility [facility] Discharge Planning Comments: CM met with patient at bedside after explaining CM role and obtaining verbal consent. CM discussed availability / needs of home health, REHAB and medical equipment. STATES SHE HAS A WALKER AT HOME. I SPOKE WITH HER DAUGHTER ANAHI ON THE PHONE YESTERDAY AND SHE WAS PLANNING TO COME BY TODAY FOR ME TO GIVE HER BROCHURES FROM DIFFERENT REHABS. I LEFT SEVERAL BROSHURES WITH THE PATIENT, SHE STATES SHE WILL LOOK THEM OVER AND MAKE A DECISION. I WILL REVISIT HER TOMORROW. Globe Mounter: Radha Crawford DCPIA - Discharge Planning Initial Assessment Updated by [id number]: Radha Crawford on 01/10/20 3:49 pm * Is the patient Alert and Oriented? Yes * PCP [facility] * Pharmacy [facility] * Preadmission Environment Home with Family * Equipment Walker * Community resources currently utilized None * Additional services required to return to the preadmission environment? Yes * Has this patient been hospitalized within the prior 30 days at any hospital? No Coverage Notice Reviewer: [id number] Khloe Crawford Notice Issued Date-Time: 01/15/2020 15:50 Notice Type: Patient Choice Letter Notice Delivered To: Patient Relationship to Patient: Finisher Polisher Name: Delivery Method: HAND - Hand Delivered Laura Days: Prior Verbal Notification: Recipient Understood Notice: Yes Recipient Signature: Yes Med Rec Note Co-signed by Attending: Coverage Notice Comment: MEKHI HICKEY [facility] Reviewer: [id number] Khloe Crawford Notice Issued Date-Time: 01/24/2020 10:43 Notice Type: IM Discharge Notice Notice Delivered To: Patient Relationship to Patient: Finisher Polisher Name: Delivery Method: HAND - Hand Delivered Laura Days: Prior Verbal Notification: Recipient Understood Notice: Yes Recipient Signature: Yes Med Rec Note Co-signed by Attending: Coverage Notice Comment: Last DP export: 01/22/20 8:38 a Patient Name: ANCA PERERA Page 12331 at 1257 All edits/amendments must be made on the electronic document DICTATION DATE: 01/24/20 1257 COFFEE MACHINE TECHNICIAN: RONALDO 01/24/20 1257 RPT#: [id number] DC DATE: STATUS: ADM IN [facility] [address] [place] [address] END OF REPORT
[2020-01-24 14:30] VITALS: BP 130/69
--- NOTE | 2020-01-24 16:00 | NUR ---
TAKEN PER W/C TO [facility] TO TRANSPORT TO [facility]
--- NOTE | 2020-01-24 17:49 | MORECARE ---
CASE MANAGEMENT DISCHARGE SUMMARY PATIENT: ANCA PERERA UNIT: [id number] ADM DATE: 01/07/20 AGE: 74 : 45 SEX: F ROOM/BED: D.2228 AUTHOR: JULIANNADOC PHYSICIAN: REFERRING PHYSICIAN: ALEX DING MD DATE OF SERVICE: 01/24/20 Discharge Plan Patient Name: ANCA PERERA Facility: [facility]:[place] : 1945 Planned Disposition: Prison Facility Anticipated Discharge Date: Discharge Date: 01/24/2020 Expected LOS: Initial Reviewer: [id number] Initial Review Date: 01/07/2020 Generated: 01/24/20 6:48 pm Comments DCP- Discharge Planning Updated by [id number]: Radha Crawford on 01/24/20 11:[address] Patient Name: ANCA PERERA Admission Status: ER Accout number: [id number] Admission Date: 01-07-2020 : 1945 Admission Diagnosis:PATHOLOGICAL FRACTURE, UNSP SITE, INIT ENCNTR FOR FRACT Attending: ALEX DING Current LOS: 17 Anticipated DC Date: Planned Disposition: Prison Facility Primary Insurance: NOVASYSMCR Discharge Planning Comments: [facility] WILL SEND TRANSPORT TO PICK PATIENT UP AT APPROX 1530 TODAY. RN CAN CALL REPORT TO [phone]. DC SUM AND MED LIST FAXED. CM TO FOLLOW AND ASSIST NEEDED. Lacquer Pin Press Operator: Radha Crawford DCP- Discharge Planning Updated by [id number]: Radha Crawford on 01/22/20 8:[address] Patient Name: ANAC PERERA Admission Status: ER Accout number: [id number] Admission Date: 01-07-2020 : 1945 Admission Diagnosis:PATHOLOGICAL FRACTURE, UNSP SITE, INIT ENCNTR FOR FRACT Attending: ALEX DING Current LOS: 15 Anticipated DC Date: Planned Disposition: Prison Facility Primary Insurance: NOVASYSMCR Discharge Planning Comments: CM SPOKE WITH MELANIE AT [facility] AND FAXED UPDATED CLINICALS AND NEGATIVE COVID. THEY ARE SUBMITTING FOR AUTH TODAY. WAITING CALL BACK WITH DECISION. CM TO FOLLOW AND ASSIST NEEDED. Lacquer Pin Press Operator: Radha Crawford DCP- Discharge Planning Updated by [id number]: Radha Yvette on 01/19/20 3:[address] Patient Name: ANCA PERERA Admission Status: ER Accout number: [id number] Admission Date: 01-07-2020 : 1945 Admission Diagnosis:PATHOLOGICAL FRACTURE, UNSP SITE, INIT ENCNTR FOR FRACT Attending: ALEX DING Current LOS: 12 Anticipated DC Date: Planned Disposition: Prison Facility Primary Insurance: NOVASYCR Discharge Planning Comments: CM SPOKE WITH [facility] ABOUT POTENTIAL DC WEDNESDAY. UPDATED CLINICALS FAXED TO THEM AND A CURRENT COVID ORDERED TODAY BECAUSE WILL NEED A NEGATIVE BACK BEFORE SHE CAN BE ACCEPTED INTO SNF. WE WILL BE WAITING INSURANCE AUTH WITH ANTICIPATION OF DC WEDNESDAY IF IMPROVED AND ACCEPTABLE WITH PHYSICIANS. CM TO FOLLOW AND ASSIST NEEDED. Lacquer Pin Press Operator: Radha Crawford DCP- Discharge Planning Updated by [id number]: Radha Yvette on 01/17/20 1:[address] Patient Name: ANCA PERERA Admission Status: ER Accout number: [id number] Admission Date: 01-07-2020 : 1945 Admission Diagnosis:PATHOLOGICAL FRACTURE, UNSP SITE, INIT ENCNTR FOR FRACT Attending: ALEX DING Current LOS: 10 Anticipated DC Date: Planned Disposition: Prison Facility [facility] Discharge Planning Comments: CM FAXED UPDATES TO [facility], THEY ARE FOLLOWING PATIENT AND WILL SUBMIT INSURANCE AUTH WHEN WE ANTICIPATE DISCHARGE. THEY WILL NEED A CURRENT NEGATIVE COVID ALSO BEFORE SHE CAN BE ACCEPTED INTO SNF. NEEDS TO BE WITHIN 72 HOURS. Lacquer Pin Press Operator: Radha Crawford DCP- Discharge Planning Updated by [id number]: Radha Crawford on 01/15/20 2:[address] Patient Name: ANCA PERERA Admission Status: ER Accout number: [id number] Admission Date: 01-07-2020 : 1945 Admission Diagnosis:PATHOLOGICAL FRACTURE, UNSP SITE, INIT ENCNTR FOR FRACT Attending: ALEX DING Current LOS: 8 Anticipated DC Date: Planned Disposition: Prison Facility Primary Insurance: NOVASYSMCR Discharge Planning Comments: CM SPOKE WITH PATIENT TODAY AND SHE WOULD LIKE REHAB AT [facility]. ALFREDO SIGNED AND I WILL FAX INITIAL CLINICALS TO THEM. CM TO FOLLOW AND ASSIST NEEDED WITH DC PLANNING/NEEDS. Lacquer Pin Press Operator: Radha Crawford DCP- Discharge Planning Updated by [id number]: Radha Crawford on 01/10/20 2:[address] Patient Name: ANCA PERERA Admission Status: ER Accout number: [id number] Admission Date: 01-07-2020 : 1945 Admission Diagnosis:PATHOLOGICAL FRACTURE, UNSP SITE, INIT ENCNTR FOR FRACT Attending: ALEX DING Current LOS: 3 Anticipated DC Date: Planned Disposition: Prison Facility Primary Insurance: [employer] Discharge Planning Comments: CM met with patient at bedside after explaining CM role and obtaining verbal consent. CM discussed availability / needs of home health, REHAB and medical equipment. STATES SHE HAS A WALKER AT HOME. I SPOKE WITH HER DAUGHTER ANAHI ON THE PHONE YESTERDAY AND SHE WAS PLANNING TO COME BY TODAY FOR ME TO GIVE HER BROCHURES FROM DIFFERENT REHABS. I LEFT SEVERAL BROSHURES WITH THE PATIENT, SHE STATES SHE WILL LOOK THEM OVER AND MAKE A DECISION. I WILL REVISIT HER TOMORROW. Lacquer Pin Press Operator: Radha Crawford DCPIA - Discharge Planning Initial Assessment Updated by [id number]: Radha Crawford on 01/10/20 3:49 pm * Is the patient Alert and Oriented? Yes * PCP [facility] * Pharmacy [facility] * Preadmission Environment Home with Family * Equipment Walker * Community resources currently utilized None * Additional services required to return to the preadmission environment? Yes * Has this patient been hospitalized within the prior 30 days at any hospital? No Coverage Notice Reviewer: [id number] Khloe Crawford Notice Issued Date-Time: 01/15/2020 15:50 Notice Type: Patient Choice Letter Notice Delivered To: Patient Relationship to Patient: Bookbinder Apprentice Name: Delivery Method: HAND - Hand Delivered Laura Days: Prior Verbal Notification: Recipient Understood Notice: Yes Recipient Signature: Yes Med Rec Note Co-signed by Attending: Coverage Notice Comment: MEKHI HAYES [facility] Reviewer: [id number] Khloe Crawford Notice Issued Date-Time: 01/24/2020 10:43 Notice Type: IM Discharge Notice Notice Delivered To: Patient Relationship to Patient: Bookbinder Apprentice Name: Delivery Method: HAND - Hand Delivered Laura Days: Prior Verbal Notification: Recipient Understood Notice: Yes Recipient Signature: Yes Med Rec Note Co-signed by Attending: Coverage Notice Comment: Last DP export: 01/24/20 11:57 a Patient Name: ANCA PERERA Page 87457 at 1749 All edits/amendments must be made on the electronic document DICTATION DATE: 01/24/201747 [employer] ATTENDANT: RONALDO 01/24/201747 RPT#: [id number] DC DATE:01/24/20 STATUS: DIS IN [facility] [address] [place] [address] END OF REPORT
== END 2020-01-24 16:00 | DRG 483 ==
LOC: D.ER 12:12 → D.EDHOLD 14:05 → D.MS 14:05
PROVIDERS: Family Medicine; Family Medicine Adult Medicine; Orthopaedic Surgery; ADMIT Family Medicine; ATTEND Family Medicine
PROC: 0RRJ00Z Replacement of Right Shoulder Joint with Reverse Ball and Socket Synthetic Substitute, Open Approach (ICD-10-PCS; principal; 2020-01-08 12:30)
DX: S42.301A Unspecified fracture of shaft of humerus, right arm, initial encounter for closed fracture (principal); N39.0 Urinary tract infection, site not specified; K56.7 Ileus, unspecified; I10 Essential (primary) hypertension; J44.9 Chronic obstructive pulmonary disease, unspecified; D72.829 Elevated white blood cell count, unspecified; I95.9 Hypotension, unspecified

== ENCOUNTER 2020-09-30 22:06 | Observation (INO) | payer OTHER ==
[~2020-09-30] VITALS: Ht 152.4 cm; Wt 38.6 kg
--- NOTE | ~2020-09-30 | HEMODYNAMI ---
PATIENT:ANCA PERERA MEDICAL RECORD: [id number] : 45 LOCATION:[place] [address] ADMISSION DATE: 10/01/20 Generatedon:114:25 Patient name: ANCA PERERA Patient #: [id number] SSN: : 1945 Date of study: 10/01/2020 Page: Of Hemodynamic Procedure Report Patient Data Patient Demographics Procedure consent was obtained First Name: ANCA Gender: Female Last Name: TREVER : 1945 Patient #: [id number] Age: 74 year(s) Race: Unknown Additional ID: [id number] Contact details [address]: [address] [place] [address] [address] State: [place] City: [place] Zip code: [address] Past Medical History Allergies Allergen Reaction Date Comments Reported Sulfa drugs 10/01/2020 Admission Admission Data Admission Date: 10/01/2020 Admission Time: 0:13 Room #: [facility] Procedure Procedure Types Cath Procedure Diagnostic Procedure LHC LH w/Coronaries FFR/IVUS FFR Initial FFR Additional Sedation Charges Moderate Sedation 25-39 minutes PCI Procedure Coronary Stent Coronary Stent Initial Hemochron ACT Test Procedure Description Procedure Date Procedure Date: 10/01/2020 Procedure Start Time: 13:45 Procedure Staff Name Function Seven Mcintyre MD Performing Physician Raven Chong RT Monitor Eileser Marie RN Nurse Reno Grissom RT Scrub Procedure Data Cath Procedure Fluoroscopy Diagnostic fluoroscopy Total fluoroscopy Time: 6.1 time: 6.1 min min Diagnostic fluoroscopy Total fluoroscopy dose: 302 dose: 302 mGy mGy Contrast Material Contrast Material Type Amount (ml) Isovue 370 160 Entry Location Entry Primary Successful Side Size Upsize Upsize Entry Closure Succes sful Closure Location (Fr) 1 (Fr) 2 (Fr) Remarks Device Remarks Femoral Right 5 Fr 6 Fr Exoseal artery Short Estimated blood loss: 5 ml Diagnostic catheters Device Type Used For End Catheter Placement MULTIPACK JL 4.0 5Fr Left Coronary catheter Angiography MULTIPACK 3DRC 5Fr Right Coronary catheter Angiography MULTIPACK Pigtail 5 Fr LV Angiography catheter Procedure Complications No complications Procedure Medications Medication Administration Route Dosage Versed I.V. 1 mg Fentanyl I.V. 50 mcg Versed I.V. 0.5 mg Fentanyl I.V. 50 mcg Heparin Bolus I.V. 4000 units Integrilin (Bolus I.V. 3.4 ml 2mg/ml) Integrilin (Bolus wasted 6.6 ml 2mg/ml) Plavix P.O. 600 mg Hemodynamics Rest Heart Rate: 73 (bpm) Pressure Samples Time Site Value (mmHg) Purpose Heart Use Rate(bpm) 13:53 LV 95/16,16 Snapshot 114 Snapshots Pre Cath Intra NCS Post Cath Vital Signs Time Heart Resp SPO2 etCO2 NIBP (mmHg) Rhythm Pain Sedation Rate (ipm) (%) (mmHg) Status Level (bpm) 12:48:53 74 22 96 0 151/82(119) NSR 0 (11) 10(A) , No pain 12:53:10 68 9 97 33 137/67(101) NSR 0 (11) 10(A) , No pain 12:57:23 79 10 97 28.5 134/71(109) NSR 0 (11) 10(A) , No pain 13:01:36 69 14 96 19.5 132/64(99) NSR 0 (11) 10(A) , No pain 13:05:50 71 13 95 23.2 122/59(102) NSR 0 (11) 10(A) , No pain 13:10:02 62 11 96 24.7 111/52(81) NSR 0 (11) 10(A) , No pain 13:14:10 64 12 96 32.2 109/55(83) NSR 0 (11) 10(A) , No pain 13:18:14 63 11 95 30.8 119/60(91) NSR 0 (11) 10(A) , No pain 13:22:24 62 12 95 33 123/55(92) NSR 0 (11) 10(A) , No pain 13:26:36 61 13 96 32.3 116/56(90) NSR 0 (11) 10(A) , No pain 13:30:44 60 12 95 33 122/57(92) NSR 0 (11) 10(A) , No pain 13:34:55 60 12 96 33.8 121/53(89) NSR 0 (11) 10(A) , No pain 13:39:05 59 12 95 33.8 114/55(92) NSR 0 (11) 10(A) , No pain 13:43:15 59 12 96 33.8 116/53(87) NSR 0 (11) 10(A) , No pain 13:47:25 59 11 96 34.5 114/52(85) NSR 0 (11) 10(A) , No pain 13:51:31 65 11 95 35.3 130/63(101) NSR 0 (11) 10(A) , No pain 13:55:43 67 11 95 35.3 134/62(101) NSR 0 (11) 10(A) , No pain 13:59:55 66 11 95 36.8 120/62(98) NSR 0 (11) 10(A) , No pain 14:04:04 68 10 96 36.8 123/57(96) NSR 0 (11) 9(A) , No pain 14:08:14 68 10 95 35.3 132/59(103) NSR 0 (11) 9(A) , No pain 14:12:28 70 11 94 34.5 136/57(101) NSR 0 (11) 9(A) , No pain 14:16:42 72 10 95 33 142/62(115) NSR 0 (11) 10(A) , No pain 14:20:59 67 11 95 33.7 136/60(106) NSR 0 (11) 10(A) , No pain 14:25:08 81 17 12.7 148/75(128) NSR 0 (11) 10(A) , No pain Medications Time Medication Route Dose Verified Delivered Reason Notes Effe ctiveness by by 13:45:14 Versed I.V. 1 mg Elieser Elieser for sedation Cynthia Marie RN RN 13:45:23 Fentanyl I.V. 50 Elieser Elieser for sedation mcg Cynthia Marie RN, RN 13:49:57 Versed I.V. 0.5 Elieser Elieser for sedation mg Cynthia Marie RN, RN 13:50:03 Fentanyl I.V. 50 Elieser Elieser for sedation mcg Cynthia Marie RN RN 13:57:08 Heparin I.V. 4000 Elieser Elieser for Bolus units Cynthia Marie anticoagulation RN RN 13:57:35 Integrilin I.V. 3.4 Elieser Elieser for (Bolus ml Loralyse Marie antiplatelet 2mg/ml) RN RN therapy 13:57:46 Integrilin wasted 6.6 Elieser Eliesre to sharp's (Bolus ml Lorigan Lorigan 2mg/ml) RN RN 14:18:02 Plavix P.O. 600 Elieser Elieser for mg Loralyse Marie antiplatelet RN RN therapy Procedure Log Time Note 12:36:44 Reno Plascenciait RT(R) sent for patient. Start room use. 12:36:59 Time tracking: Regular hours (M-F 7:00 - 5:00) 12:37:03 Plan of Care:Hemodynamics will remain stable., Cardiac rhythm will remain stable., Comfort level will be maintained., Respiratory function will remain adequate., Patient/ family verbilizes understanding of procedure., Procedure tolerated without complication., Recovers from procedure without complications.. 12:37:12 ACC Patient presents with Unstable Angina CCS Anginal Class 3--Marked limitation of physical activity, angina occurs with ordinary activity.. 12:43:29 Patient received from Pre/Post Procedure Room to CCL 1 Alert and oriented. Tansferred to table in Supine position. 12:43:31 Signed procedure consent form obtained from patient. 12:43:32 Warm blankets applied, and samira hugger turned on for patient comfort. 12:43:33 Correct patient and procedure confirmed by team. 12:43:34 ECG and BP/O2 sat monitors applied to patient. 12:43:35 Full Disclosure recording started 12:47:41 Vital chart was started 12:48:38 Rhythm: sinus rhythm 12:48:46 H&P Date Dictated: 10/01/2020 Within 30 days and on chart., ER History on chart.. 12:48:47 Pre-procedure instructions explained to patient. 12:48:48 Pre-op teaching completed and patient verbalized understanding. 12:52:30 Family unavailable. 12:52:34 Patient NPO since Midnight. 12:55:53 Baseline sample Acquired. 12:56:12 Patient allergic to Sulfa drugs 12:56:14 Is the patient allergic to Iodine/contrast media? No. 12:56:15 Is patient on blood thinner?No 12:56:22 Patient diabetic? No. 12:56:25 Zero performed for pressure channel P1 12:56:29 Zero performed for pressure channel P1 12:56:30 Zero performed for pressure channel P1 12:56:36 Zero performed for pressure channel P1 12:56:44 Previous problem with sedation/anesthesia? No ? 12:56:46 Snore? No 12:56:47 Sleep apnea? No 12:56:48 Deviated septum? No 12:56:49 Opens mouth fully? Yes 12:56:50 Sticks out tongue? Yes 12:56:53 Airway obstruction? Yes COPD 12:57:10 Dentures? No ? 12:57:13 Pre procedure: right dorsailis pedis pulse 2+ Normal; easily identifiable; not easily obliterated 12:57:17 Patient pain scale 0/10 ?. 12:57:24 IV patent on arrival in left forearm with 0.9% NaCl at [facility]. 12:57:27 Lab results completed and on chart. 12:57:33 Risk of Mortality: 2.5 12:57:36 Risk of blood transfusion: 6.3 12:57:39 Risk of EDUARDA: 4.2 12:57:42 Right groin area was prepped with chlora-prep and draped in sterile fashion 12:57:43 Alarms reviewed by R. N. 12:57:43 Sharps counted by scrub and verified by R.N. 12:57:46 Use device set Femoral Dx 12:57:48 ACIST Syringe (94121) opened to sterile field. 12:57:48 Bag Decanter (2002S) opened to sterile field. 12:57:49 Medline Cath Pack ([id number]) opened to sterile field. 12:57:50 ACIST Hand Control (96201) opened to sterile field. 12:57:51 ACIST Manifold (83842) opened to sterile field. 12:57:54 DIAGNOSTIC Multipack 5Fr catheter set (FA3211) opened to sterile field. 12:57:55 EMERALD Guide Wire (502-523) opened to sterile field. 12:57:56 SHEATH 5FR [place] (TDE125) opened to sterile field. 13:38:12 Physician arrived 13:43:23 Final Timeout: patient, procedure, and site verified with staff and physician. All members of the team are in agreement. 13:43:25 Right groin site verified by team. 13:43:29 Fire Safety Assessment: A--An alcohol-based skin anteseptic being used preoperatively., C--Open oxygen or nitrous oxide is being used., D--An ESU, laser, or fiber-optic light is being used. 13:43:34 Physical assessment completed. ASA score P 3 - A patient with severe systemic disease as per Seven Mcintyre MD. 13:43:40 2) 60-89 Mildly reduced kidney function, and other findings (as for stage 1) point to kidney disease. 13:43:45 Maximum allowable contrast dose (3.7 X eGFR X 0.75)208 ml. 13:43:49 Sedation plan: IV Moderate Sedation Medication:Versed, Fentanyl 13:45:08 Procedure started. 13:45:14 Versed 1 mg I.V. was administered by Elieser Marie RN; for sedation; Verbal order read back and verified. 13:45:23 Fentanyl 50 mcg I.V. was administered by Elieser Marie RN; for sedation; Verbal order read back and verified. 13:45:38 Local anesthetic to right femoral artery with Lidocaine 2% by Seven Mcintyre MD.INITIAL ACCESS ONLY 13:46:27 A 5 Fr sheath was inserted into the Right Femoral artery 13:47:20 A MULTIPACK JL 4.0 5Fr catheter was advanced over the wire and used for Left Coronary Angiography. 13:49:05 Catheter removed. 13:49:12 A MULTIPACK 3DRC 5Fr catheter was advanced over the wire and used for Right Coronary Angiography. 13:49:57 Versed 0.5 mg I.V. was administered by Elieser Marie RN; for sedation; Verbal order read back and verified. 13:50:03 Fentanyl 50 mcg I.V. was administered by Elieser Marie RN; for sedation; Verbal order read back and verified. 13:50:16 Catheter removed. 13:51:53 A MULTIPACK Pigtail 5 Fr catheter was advanced over the wire and used for LV Angiography. 13:53:25 LV gram done using MILTON 13:53:31 EF : 55 % 13:53:34 LV hemodynamics recorded. 13:53:37 Injector settings: Ml/sec: 5, Volume: 15, 13:53:38 Catheter removed. 13:54:12 SHEATH 6FR [place] (QYC056) opened to sterile field. 13:54:38 GUIDE 6FR JL 3.5 guide catheter ([id number]) opened to sterile field. 13:54:38 INFLATOR Merit BasixCompak (WE7089) opened to sterile field. 13:54:39 Savannah OmniWire (64989) opened to sterile field. 13:54:53 Sheath upsized to a 6 Fr Short. 13:56:01 6 Fr JL 3.5 guide catheter was inserted over the wire 13:57:08 Heparin Bolus 4000 units I.V. was administered by Elieser Marie RN; for anticoagulation; Verbal order read back and verified. 13:57:35 Integrilin (Bolus 2mg/ml) 3.4 ml I.V. was administered by Elieser Marie RN; for antiplatelet therapy; Verbal order read back and verified. 13:57:41 Pressure wire advanced. 13:57:46 Integrilin (Bolus 2mg/ml) 6.6 ml wasted was administered by Elieser Marie RN; to sharp's; Verbal order read back and verified. 14:01:23 wire normalized in AO 14:01:26 Wire advanced across lesion. 14:03:11 mLAD lesion measured at 0.84 with IFR 14:05:38 Place stent Inflation Number: 1 A ILYA RX 3.0 x 12 stent ([id number]) was prepped and advanced across the Mid LAD . The stent was deployed at 12 APOLONIA for 0:33 (min:sec) . 14:05:54 Stent catheter was removed intact over wire. 14:05:55 Wire removed. 14:05:57 Guide catheter removed. 14:06:38 GUIDE 6FR HS I SH catheter ([id number]) opened to sterile field. 14:06:59 6 Fr HSI SH guide catheter was inserted over the wire 14:09:00 Pressure wire advanced. 14:10:05 pressure wire normalized in AO 14:11:18 Wire advanced across lesion. 14:12:10 mRCA lesion measured at 0.92 with IFR 14:13:50 mRCA lesion measured at 0.93 with IFR 14:13:53 Wire removed. 14:13:59 Guide catheter removed. 14:14:05 ACT Drawn 14:14:21 Sheath removed intact; hemostasis achieved with Exoseal to the Right Femoral artery. 14:14:40 Procedure ended.(Physican Out) 14:14:59 Fluoroscopy time 06.10 minutes. 14:15:02 Fluoroscopy dose: 302 mGy 14:15:02 Flurop Dose total: 302 14:15:06 Dose Area Product 20.8 mGy/cm. 14:15:09 Contrast amount:Isovue 370 160ml. 14:15:13 Maximum allowable dose exceeded? No. 14:15:14 Sharps counted by scrub and verified by R.N. 14:15:15 Insertion/operative site no bleeding no hematoma. 14:15:17 Post-op/insertion site Right Femoral artery dressed using a 4 x 4 and Tegaderm. 14:15:20 Post right femoral artery:stable, clean and dry 14:15:24 Post Procedure Pulses reassessed and unchanged 14:15:31 Post-procedure physical assessment completed. ASA score P 3 - A patient with severe systemic disease as per Seven Mcintyre MD. 14:15:33 Post procedure rhythm: unchanged. 14:15:37 Estimated blood loss: 5 ml 14:15:39 Post procedure instruction explained to patient.Patient verbalizes understanding. 14:15:39 Patient needs reinforcement of post procedure teaching. 14:16:47 Procedure type changed to Cath procedure, Diagnostic procedure, LHC, LHC w/Coronaries, FFR/IVUS, FFR Initial, FFR Additional, Sedation Charges, Moderate Sedation 25-39 minutes, PCI procedure, Coronary Stent, Coronary Stent Initial, Hemochron ACT Test 14:16:53 Procedure Complication : No complications 14:17:15 Procedure and supply charges have been captured, reviewed, submitted and are correct. 14:17:18 Tegaderm 4 x 4 (1626W) opened to sterile field. 14:17:23 EXOSEAL 6Fr (EX600) opened to sterile field. 14:17:57 Operative report dictated upon procedure completion. 14:17:57 See physician's report for complete and final results. 14:18:02 Plavix 600 mg P.O. was administered by Elieser Marei RN; for antiplatelet therapy; Verbal order read back and verified. 14:23:57 ACT drawn and resulted at 287 seconds. (normal therapeutic range 180-240 seconds). 14:24:26 Vital chart was stopped 14:24:31 Report given to Pre/Post Procedure Room. 14:24:36 Patient transfered to Pre/Post Procedure Room with Stretcher. 14:25:22 Raven Counts RT(R) was relieved by Raven Counts RT(R) as monitoring person 14:25:33 Raven Counts RT(R) was relieved by Raven Counts RT(R) as monitoring person Intervention Summary Intervention Notes Time ActionType Lesion and Equipment Used Action# Pressure Duration Attributes 14:05:[address] Place stent Mid LAD ILYA RX 3.0 x 1 12 00:33 12 stent ([id number]) Device Usage Item Name Manufacture Quantity Catalog Hospital Part [facility] Lot# / Number Charge Number Stock Stock Serial# Code ACIST Syringe Acist 1 54807 110784 716603 405368 20 (35704) Medical Systems Inc Bag Decanter Microtek 1 2001S 634728 97353 495830 5 (2001S) Medical Inc. Medline Cath Medline 1 [id number] 823843 87852 034069 5 Pack ([id number]) ACIST Hand Acist 1 49800 119331 629787 046046 5 Control Medical (58802) Systems Inc ACIST Manifold Acist 1 35407 803495 072782 378941 5 (41727) Medical Systems Inc DIAGNOSTIC Cardinal 1 QO3895 540988 30051 759405 30 Multipack 5Fr Health catheter set (YV2466) EMERALD Guide Cardinal 1 502-455 426269 166272 050402 5 Wire (502-455) Health SHEATH 5FR Terumo 1 JNX957 501841 070002 377871 5 [place] (EPT170) MULTIPACK JL Cardinal 1 976054 5 4.0 5Fr Health catheter MULTIPACK 3DRC Cardinal 1 451648 5 5Fr catheter Health MULTIPACK Cardinal 1 165597 5 Pigtail 5 Fr Health catheter SHEATH 6FR Terumo 1 QIZ441 197129 629283 118966 40 [place] (PXV203) GUIDE 6FR JL Medtronic 1 [id number] 051392 35285 179146 1 3.5 guide catheter (XS7BE00) INFLATOR Merit Merit 1 WP3423 635523 612628 980869 15 [facility] (SS3894) Savannah Savannah 1 [id number] 083147 31640 9909 5 OmniWire (52222) ILYA RX 3.0 x Medtronic 1 [id number] 595156 7265068 125664 5 [id number] 12 stent ([id number]) GUIDE 6FR HS I Medtronic 1 [id number] 251376 68475 663143 1 SH catheter ([id number]) Tegaderm 4 x 4 3M 1 1626W 500562 911204 166727 5 (1626W) EXOSEAL 6Fr Cardinal 1 EX600 246026 291063 037812 10 (EX600) Health Signature Audit [place] Stage Time Signature Unsigned Intra-Procedure 10/01/2020 Elieser 2:25:12 PM Cynthia LAM Intra-Procedure 10/01/2020 Raven 2:25:27 PM Counts RT(R) Intra-Procedure 10/01/2020 Seven Ty 2:25:51 PM Huang [facility] [place] [address] [place] [address]
[~2020-09-30 22:06] MED LIST changes: +DILTIAZEM 24HR180 M4 PO; +MIRALAX17 GM PO
[2020-09-30 22:11] VITALS: Ht 152.4 cm; Wt 38.6 kg
[2020-09-30 22:44] VITALS: BP 140/64
[2020-09-30 22:58] LABS: BASOPHILS 0.7 % (0-2); EOSINOPHILS 2.1 % (0-7); HEMATOCRIT 35.9 % (36.0-48.0); HEMOGLOBIN 12.4 g/dL (12-16); LYMPHOCYTES 23.8 % (15-50); MCH 27.3 pg (26.0-34.0); MCHC 34.4 g/dL (31.0-37.0); MCV 79.2 fL (80.0-100.0); MEAN PLATELET VOLUME 7.3 fL (7.4-10.4); MONOCYTES 5.9 % (2-11); NEUTROPHILS 67.5 % (40-80); RBC 4.54 10x6/uL (4.00-5.40); RDW 15.4 % (11.5-14.5); WBC 7.8 10x3/uL (4.8-10.8)
[2020-09-30 23:04] LABS: PLATELET COUNT 242 10x3/uL (130-400)
[2020-09-30 23:15] LABS: CALC OSMOLALITY 283 mosm/kg (275-300); CALCIUM 8.5 mg/dL (8.5-10.1); CARBON DIOXIDE 24.8 mmol/L (21.0-32.0); CHLORIDE - SERUM 108 mmol/L (98-107); CREATININE - SERUM 0.8 mg/dL (0.6-1.3); GLUCOSE 81 mg/dL (74-106); POTASSIUM - SERUM 4.1 mmol/L (3.5-5.1); SODIUM 143 mmol/L (136-145); UREA NITROGEN 13 mg/dL (7-18); eGFR NON AFRICAN AMERICAN 74 mL/min (90-120)
[2020-09-30 23:17] LABS: APTT 26.4 SECONDS (22.8-39.4); INR 1.08 (0.85-1.17)
[2020-09-30 23:30] LABS: ALBUMIN 3.3 g/dL (3.4-5.0); ALKALINE PHOSPHATASE 128 U/L (30-120); ALT (SGPT) 10 U/L (10-68); BILIRUBIN - TOTAL 0.19 mg/dL (0.2-1.3); CKMB 1.8 U/L (0.0-3.6); CREATINE KINASE 48 UL (21-215); MAGNESIUM - SERUM 1.8 mg/dL (1.8-2.4); PROTEIN - SERUM 6.2 g/dL (6.4-8.2); TROPONIN-I < 0.017 ng/mL (0.000-0.060)
[2020-10-01 05:01] LABS: CKMB 2.2 U/L (0.0-3.6); CREATINE KINASE 50 UL (21-215); PRO BNP 120 pg/mL (0-125)
--- NOTE | 2020-10-01 05:01 | NUR ---
REPORT HANDED OFF FROM GENARO STALEY AT THIS TIME.
[2020-10-01 05:12] LABS: TROPONIN-I < 0.017 ng/mL (0.000-0.060)
[2020-10-01 06:08] VITALS: BP 161/71
[2020-10-01 09:25] LABS: BASOPHILS 0.3 % (0-2); EOSINOPHILS 0.1 % (0-7); HEMOGLOBIN 13.1 g/dL (12-16); LYMPHOCYTES 8.1 % (15-50); MCH 27.7 pg (26.0-34.0); MCHC 34.4 g/dL (31.0-37.0); MCV 80.4 fL (80.0-100.0); MEAN PLATELET VOLUME 7.9 fL (7.4-10.4); MONOCYTES 0.5 % (2-11); PLATELET COUNT 241 10x3/uL (130-400); RBC 4.72 10x6/uL (4.00-5.40); RDW 15.2 % (11.5-14.5); WBC 8.4 10x3/uL (4.8-10.8)
[2020-10-01 09:31] LABS: CALCIUM 9.2 mg/dL (8.5-10.1); CARBON DIOXIDE 23.4 mmol/L (21.0-32.0); CREATININE - SERUM 0.9 mg/dL (0.6-1.3); LDL-HDL RATIO 0.9 ratio (1.5-3.5); POTASSIUM - SERUM 4.4 mmol/L (3.5-5.1)
[2020-10-01 11:27] LABS: CREATINE KINASE 44 UL (21-215)
[2020-10-01 11:28] LABS: TROPONIN-I < 0.017 ng/mL (0.000-0.060)
--- NOTE | 2020-10-01 14:32 | CN ---
PATIENT NAME:ANCA PERERA MEDICAL RECORD: [id number] : 45 LOCATION:[facility] ADMIT DATE: 10/01/20 ACCOUNT: [id number] CONSULTING PHYSICIAN: BOGDAN FISHER MD REFERRING PHYSICIAN: SEBASTIEN BRUNO DO DATE OF CONSULTATION: 10/01/2020 HISTORY OF PRESENT ILLNESS: A pleasant 74-year-old female with a history of hypertension, hyperlipidemia, otherwise fairly healthy, walks at least 5 days a week noticed a rapid progress in exercise effort intolerance over the past 2-3 weeks. Actually got some nitroglycerin from her friend, yesterday had onset of rest symptomatology, initially relieved with nitroglycerin. Pain recurred. We are asked to see her concerning her cardiovascular status. PAST MEDICAL HISTORY: Includes; 1. History of obstructive pulmonary disease with reactive component. 2. Hypertension. 3. Osteoarthritis. MEDICATIONS: Include trazodone 150 at bedtime, Voltaren 25 every day, diltiazem 180 every day, albuterol 2.5 mg every 4 hours p.r.n. ALLERGIES: SULFA. SOCIAL HISTORY: Nonsmoker, nondrinker. Exercises on a regular basis. Easily takes care of all her ADLs. FAMILY HISTORY: Does have a family history of coronary artery disease including siblings. REVIEW OF SYSTEMS: The patient reports easy bruising but reports no swollen glands. The patient reports no fever, no night sweats, no significant weight gain, no significant weight loss. No significant exercise tolerance. The patient reports no dry eyes, no irritation, no vision change. Patient reports no difficulty hearing and no ear pain. Patient reports no frequent nose bleeds or nose and sinus problems. Patient reports on arm pain on exertion. No shortness of breath while lying down. No history of heart murmur. Patient reports no cough, no wheezing or coughing up blood. Patient reports no abdominal pain, no vomiting. Normal appetite. No diarrhea and not vomiting blood. No nausea and no constipation. Patient reports no incontinence. No difficulty urinating. No hematuria. No increased frequency. Patient reports no muscle aches. No weakness, no arthralgias, no back pain. No swelling of the extremities. Patient reports no abnormal mole, no jaundice, no rashes. Reports no loss of consciousness. No weakness and no numbness. No seizures, dizziness, or headaches. The patient reports no depression, no sleep disturbance, feeling safe in a relationship and no alcohol abuse. Patient reports on fatigue. Reports no runny nose or sinus pressure. No itching, no hives, and no frequent sneezing. PHYSICAL EXAMINATION: GENERAL: Pleasant, no acute distress, appears younger than stated age, alert and oriented times 3. VITAL SIGNS: Blood pressure 161/71, pulse 90 and regular. HEENT: Normocephalic, atraumatic. Extraocular muscles are intact. Face is symmetrical. CONSULT REPORT [id number] ANCA PERERA NECK: No JVD or bruit. HEART: Regular, II/ systolic ejection murmur. LUNGS: Good air excursion. ABDOMEN: Soft, nontender. EXTREMITIES: Pulses 2+. No edema. NEUROLOGIC: Grossly intact. IMPRESSION: Classic angina, now with rest symptomatology. PLAN: For angiography and intervention based on the above. TRANSINT:[id number] Voice Confirmation ID: [id number] DOCUMENT ID: [id number] BOGDAN FISHER MD at 1432 CC: [id number] DICTATION DATE: 10/01/20 0848 SECONDARY SPANISH TEACHER: 10/01/[address] [facility] [address] [place] [address]
--- NOTE | 2020-10-01 14:35 | NUR ---
PT REC'D TO CATH RECOVERY ROOM 4 VIA STRETCHER. MONITORS ESTAB. NO FAMILY PRESENT. PT ANSWERS APPROP. VSS. SEE CUSTOM SHOEMAKER FLOWSHEETS. ALARMS ON AND C/L IN REACH.
--- NOTE | 2020-10-01 14:50 | NUR ---
R GROIN EXOSEAL SITE C/D/I, NO S/S BLEEDING OR HEMATOMA. R LEG/FOOT WARM WITH PALP PULSES AND CAP REFILL WNL. VSS. DR. FISHER IN TO SEE PT. UPDATE GIVEN AND QUESTIONS ANSWERED. PRN ZOFRAN GIVEN FOR C/O NAUSEA - WILL CONT CLOSE MONITORING. ALARMS ON AND C/L IN REACH.
[2020-10-01] MEDS ORDERED: PLAVIX75 MG PO (14:57)
[2020-10-01] MEDS ORDERED: PRAVASTATIN SOD10 MG PO (14:57)
[2020-10-01] MEDS ORDERED: BAYER CHEWABLE81 MG PO (14:57)
--- NOTE | 2020-10-01 15:20 | NUR ---
PT VOIDED 250CC HAZY YELLOW URINE ON BEDPAN, PERICARE PROVIDED. R GROIN SITE C/D/I, NO S/S BLEEDING OR HEMATOMA. PULSES PALP. VSS. PT DENIES PAIN OR NEEDS. ALARMS ON AND C/L IN REACH.
--- NOTE | 2020-10-01 15:35 | NUR ---
R GROIN EXOSEAL SITE C/D/I, NO S/S BLEEDING OR HEMATOMA. PULSES PALP. VSS. ALARMS ON AND C/L IN REACH.
--- NOTE | 2020-10-01 15:59 | NUR ---
PT C/O PAIN "LEG/BACK/SHOULDER" - PRN MORPHINE GIVEN, SEE EMAR. R GROIN SITE SOFT, NO S/S BLEEDING OR HEMATOMA. PULSES PALP. R LEG/FOOT WARM WITH CAP REFILL WNL. PT STATES "I THINK ITS FROM HAVING TO LAY LIKE THIS SO LONG" REPOSITIONED FOR COMFORT. WILL CONT CLOSE MONITORING.
[2020-10-01 16:00] VITALS: BP 127/70
--- NOTE | 2020-10-01 16:15 | NUR ---
REPORT CALLED TO BONNIE ON MED 2. DISCHARGE INSTRUCTIONS REVIEWED WITH PT, INCLUDING RESTRICTIONS, MEDS (PT EDUCATION MATERIAL PROVIDED ON NEW MEDICATIONS) AND F/U APPTS. PT VERBALIZES UNDERSTANDING.
--- NOTE | 2020-10-01 16:30 | NUR ---
PT REPORTS ADEQUATE PAIN RELIEF, ONLY C/O RESLESTLESS LEGS _ REPORTS TAKING MEDICINE FOR IT, HOME MED REC EDITED TO ADD REQUIP. PT GIVEN JELLO PER REQUEST. R GROIN SITE C/D/I, NO S/S BLEEDING OR HEMATOMA.
[2020-10-01] MEDS ORDERED: REQUIP0.25 MG PO (16:34)
--- NOTE | 2020-10-01 16:39 | NUR ---
WILL TRANSFER PT VIA STRETCHER TO ROOM 2121. PTS SON AND GIRLFRIEND NOTIFIED.
--- NOTE | 2020-10-01 17:01 | NUR ---
RECEIVED PATIENT FROM ER VIA STRETCHER, PATIENT HAS 2 HOURS LEFT OF RECOVERY TIME FROM CLIENT RESOURCE SPECIALIST. PATIENT HAD A STENT PLACED DURING HEART CATH. PATIENT IS AWAKE, ALERT AND ORIENTED. DENIES PAIN. CHARLEY IS ABLE TO VOID ON BEDPAN WHEN SHE GETS TO THE FLOOR. SHE IS SALINE LOCKED . PATIENT HAS DC PAPERWORK IN HER CHART AND HAS FOLLOW UP APPT ALREADY MADE. CALL LIGHT IN REACH. NAD NOTED.
--- NOTE | 2020-10-01 19:30 | NUR ---
PT IN BED, AAO X 4, RESP EVEN AND UNLABORED, NO DISTRESS NOTED, CL IN REACH, SR UP X 2.
[2020-10-01 21:21] VITALS: BP 100/56
[2020-10-02 00:27] VITALS: BP 100/48
--- NOTE | 2020-10-02 04:57 | NUR ---
I have reviewed this patient and I concur with the Shift Assessment completed by the Licensed Practical Nurse today this shift.
[2020-10-02 06:16] VITALS: BP 123/51
[2020-10-02 07:16] LABS: BASOPHILS 0 % (0-2); EOSINOPHILS 0 % (0-7); HEMATOCRIT 31.5 % (36.0-48.0); HEMOGLOBIN 10.8 g/dL (12-16); LYMPHOCYTES 11.4 % (15-50); MCH 27.7 pg (26.0-34.0); MCHC 34.3 g/dL (31.0-37.0); MCV 80.9 fL (80.0-100.0); MEAN PLATELET VOLUME 7.8 fL (7.4-10.4); MONOCYTES 6.3 % (2-11); NEUTROPHILS 82.3 % (40-80); PLATELET COUNT 225 10x3/uL (130-400); RBC 3.89 10x6/uL (4.00-5.40); RDW 15.4 % (11.5-14.5)
[2020-10-02 07:35] LABS: ALBUMIN 2.9 g/dL (3.4-5.0); ANION GAP 13.1 mmol/L (8-16); BILIRUBIN - TOTAL 0.15 mg/dL (0.2-1.3); CALCIUM 8.7 mg/dL (8.5-10.1); CARBON DIOXIDE 25.2 mmol/L (21.0-32.0); CREATININE - SERUM 0.9 mg/dL (0.6-1.3); MAGNESIUM - SERUM 1.9 mg/dL (1.8-2.4); POTASSIUM - SERUM 4.3 mmol/L (3.5-5.1); PROTEIN - SERUM 5.3 g/dL (6.4-8.2)
[2020-10-02 08:10] VITALS: BP 106/51
--- NOTE | 2020-10-02 09:49 | NUR ---
DISCHARGE INSTRUCTIONS GIVEN TO PATIENT AT THIS TIME, PATIENT REMINDED TO FILL PRESCRIPTIONS. PATIENT DENIES QUESITONS . WAITING FOR RIDE TO GET HER HOME. CALL LIGHT IN REACH
--- NOTE | 2020-10-02 10:00 | NUR ---
NURSE REVIEWS DC INSTRUCTIONS WITH PATIENT AT THIS TIME. PATIENT REMINDED TO GET PRESCRIPTIONS FILLED BEFORE GOING HOME, AND REMINDED OF DC APPT WITH CARDIOLOGY AND PCP. PATIENT VERBS UNDERSTANDING. PATIENT WAITING ON RIDE HOME FROM DAUGHTER IN LAW.
--- NOTE | 2020-10-02 10:55 | NUR ---
PATIENT'S IV DC , CATH TIP INTACT. PATIENT WHEELED DOWN TO PRIVATE VEHICLE. NAD NOTED.
--- NOTE | 2020-10-02 14:49 | MORECARE ---
CASE MANAGEMENT DISCHARGE SUMMARY PATIENT: ANCA PERERA UNIT: [id number] ADM DATE: 10/01/20 AGE: 74 : 45 SEX: F [facility] AUTHOR: JULIANNA,DOC PHYSICIAN: REFERRING PHYSICIAN: SEBSATIEN BRUNO DO DATE OF SERVICE: 10/02/20 Case Management Discharge Planning Summary DCP REVIEW SUMMARY ANTICIPATED D/C DATE: 10/02/2020 EXPECTED LOS : 1 CASE STATUS: DCP Initiated INITIAL REVIEW: 10/01/2020 INITIAL REVIEWER: Madina Maher FINAL DISCHARGE DISPOSITION: 01 : Home or Self Care (Routine Discharge) FINAL REVIEWER: Madina Maher FINAL REVIEW DATE: 10/02/2020 DCP Focus Questions & Answers QUESTION: ANSWER : PATIENT: ANCA PEREAR ENCOUNTER: [id number] MEDICAL RECORD#: [id number] ADMISSION DATE: 10/01/2020 DISCHARGE DATE: 10/02/2020 ATTENDING MD: SEBASTIEN HARMON : AGE: 74 MARITAL STATUS: W DC PLAN ID: [id number] FACILITY: [facility] PRINTED ON: 10/02/20 14:49 CT All edits/amendments must be made on the electronic document DICTATION DATE: 10/02/201448 BLOCKING MACHINE OPERATOR SECOND: RONALDO 10/02/201448 RPT#: [id number] DC DATE:10/02/20 STATUS: DIS IN [facility] [address] [place] [address] END OF REPORT
--- NOTE | 2020-10-03 08:07 | EC ---
PATIENT:ANCA PERERA DATE OF SERVICE: 10/01/20 SEX: F MEDICAL RECORD: [id number] DATE OF : 45 LOCATION:D.M2 D.212 AGE OF PATIENT: 74 ADMISSION DATE: 10/01/20 REFERRING PHYSICIAN: INTERPRETING PHYSICIAN: BOGDAN FISHER MD ECHOCARDIOGRAM REPORT ECHO CHARGES 4 ECHO COMPLETE Date: 10/01/20 CLINICAL DIAGNOSIS: CP ECHOCARDIOGRAPHIC MEASUREMENTS (adult normal given) AC root (d.<3.7cm) 2.5 cm LV Septum d (<1.2 cm> 0.7 cm Valve Excursion 1.4 cm LV Septum (systole) 1.1 cm Left Atria (s.<4.0cm> 3.2 cm LVPW d(<1.2cm) 1.0 cm RV (d.<2.3cm) 2.8 cm LVPW (sytole) 1.1 cm LV diastole(<5.6CM) 5.0 cm MV E-F(>70mm/sec) cm LV systole 3.3 cm LVOT Diameter 1.7 cm MV exc.(>10mm) 1.3 cm Est.ejection fraction (50-75%) % DOPPLER: LVIT cm/sec A 105 cm/sec E 73 cm/sec LA cm/sec RVSP 20 mmHg LVOT 109 cm/sec AOP1/2T m/s Asc. Ao 129 cm/sec RVOT 48 cm/sec RA cm/sec PA 86 cm/sec AV Gradient Peak 6.7 mmHg AV Mean 3.5 mmHg AV Area 1.7 cm MV Gradient Peak 5.4 mmHg MV Mean 2.3 mmHg MV Area cm COMMENTS: Medical Imaging Tech: Janet LANDA Lap Cutter: 3 Dr. Arenas TAPE# Pericardial Effusion Y DATE OF SERVICE: Adequate 2D, color-flow imaging, spectral Doppler, and M-Mode FINDINGS: No LVH. LV internal dimensions are normal. Wall motion is normal. EF is greater than or equal to 55%. Aortic valve is tricuspid. No evidence of stenosis by Doppler interrogation. Left atrium is normal. Mitral valve shows no prolapse. Trace MR. Right-sided chambers are grossly normal. Mild TR. TRANSINT:[id number] Voice Confirmation ID: [id number] DOCUMENT ID: [id number] ECHOCARDIOGRAM REPORT [id number] ANCA PERERA BOGDAN FISHER MD at 0807 CC: [id number] DICTATION DATE: 10/01/20 1511 [employer] POLICE: 10/01/20 1607 DIS IN 10/02/20 [id number] [place] [address]
--- NOTE | 2020-10-03 08:07 | OP ---
PATIENT NAME: ANCA PERERA MEDICAL RECORD: [id number] :45 LOCATION:D.M2 D.2 ADMISSION DATE:10/01/20 SURGEON: BOGDAN FISHER MD DATE OF OPERATION: 10/01/2020 PROCEDURES: Left heart catheterization, selective coronary angiography plus IFR wire to the right and LAD plus stenting of the right femoral artery approach. CATHETERS: A 5-Luxembourgish sheath, 5/4 left and right Eliot, 5/4 pig. The procedure was well tolerated. The patient was returned to the [facility]. Sheath removed. Adequate hemostasis was obtained as well as ExoSeal device was placed. FINDINGS: Left ventriculography in 30 degree [place] view, normal wall motion, normal systolic function. CORONARY ANATOMY: LEFT MAIN: Short vessel, free of disease. LAD: Has an 80% stenosis in the mid portion. This was confirmed via IFR wire of less than 0.9. CIRCUMFLEX: Medium size circumflex, free of disease. RIGHT CORONARY ARTERY: Has a questionable stenosis in proximal portion; however, non-flow restrictive via IFR wire. IMPRESSION: Acute coronary syndrome secondary to stenosis of the left anterior descending. PLAN: Interventional momentarily. DESCRIPTION OF PROCEDURE: A 5-Luxembourgish sheath was exchanged for a 6-Luxembourgish sheath. A JL4 guiding catheter provided excellent guide catheter support followed by the IFR wire. Stent deployed was a 3.0 x 12 Kris drug-eluting stent up to 14 atmospheres for 45 seconds. Final angiography showed excellent resolution of 80% stenosis. No significant residual. ADDISON flow was 3 throughout the procedure. Sheath closed with ExoSeal device. Plavix loaded in the lab. TRANSINT:[id number] Voice Confirmation ID: [id number] DOCUMENT ID: [id number] BOGDAN FISHER MD at 0807 CC: [id number] DICTATION DATE: 10/01/20 1422 PATIENT ACCESS REPRESENTATIVE: 10/01/20 1517 DIS IN 10/02/20 [id number] [place] [address]
== END 2020-10-02 11:02 | disposition home or self-care (01) ==
LOC: D.ER 22:06 → D.EDHOLD 10-01 00:13 → OBSVTIME 10-01 00:14 → D.CLR 10-01 11:08 → D.M2 10-01 16:43
PROVIDERS: Family Medicine; Internal Medicine Interventional Cardiology; ADMIT Family Medicine; ATTEND Family Medicine
DX: I25.110 Atherosclerotic heart disease of native coronary artery with unstable angina pectoris (principal); R07.9 Chest pain, unspecified; I10 Essential (primary) hypertension; J44.9 Chronic obstructive pulmonary disease, unspecified; K21.9 Gastro-esophageal reflux disease without esophagitis; Z72.0 Tobacco use; M19.90 Unspecified osteoarthritis, unspecified site
CPT/HCPCS: 93458; 93571; C9600